=== PATIENT | female | born 1960 | race Caucasian/White ===

== ENCOUNTER 2017-01-15 11:28 | Inpatient (IN) | payer OTHER ==
[2017-01-15 11:28] VITALS: BMI 30.9
[2017-01-15] MEDS ORDERED: Sodium Chloride 0.9% 1,000 ML IV ONE ×5 (12:20→21:58)
[2017-01-15] MEDS ORDERED: Sodium Chloride 0.9% 1,000 ML ONE ×2 (12:21→16:33)
--- NOTE | 2017-01-15 12:22 | C.PDOC ---
History Of Present Illness 56-year-old female with a Hx of kidney stones, presents to the ER with a complaint of left side abdominal pain since last night with multiple episodes of vomiting. Patient has a Hx of severe complications; last bowel movement was 3 days ago; as per family, patient usually only has a bowel movement every 5 days. Denies fever or chills. Time Seen by Provider: 01/15/17 12:09 Chief Complaint (Nursing): Abdominal Pain History Per: Patient History/Exam Limitations: no limitations Onset/Duration Of Symptoms: Days Current Symptoms Are (Timing): Still Present Location Of Pain/Discomfort: Diffuse Radiation Of Pain To:: None Quality Of Discomfort: Unable To Describe Associated Symptoms: Vomiting. denies: Fever, Chills Exacerbating Factors: None Alleviating Factors: None Recent travel outside of the [place]: No Abnormal Vaginal Bleeding: No Past Medical History Reviewed: Historical Data, Nursing Documentation, Vital Signs Vital Signs: Last Vital Signs Temp 100.8 F H 01/15/17 16:08 Pulse 116 H 01/15/17 16:08 Resp 18 01/15/17 16:08 BP 107/51 L 01/15/17 16:08 Pulse Ox 98 01/15/17 16:08 - Medical History PMH: Kidney Stones, Chronic Kidney Disease - [facility] Procedures CYSTOSCOPY NEC (05/02/14) REMOV URETERAL DRAIN (05/02/14) RETROGRADE PYELOGRAM (04/08/14) URETERAL CATHETERIZATION (04/08/14) Family History: States: No Known Family Hx - Social History Hx Tobacco Use: No Hx Alcohol Use: No Hx Substance Use: No - Immunization History Hx Tetanus Toxoid Vaccination: Yes Hx Influenza Vaccination: Yes Hx Pneumococcal Vaccination: Yes Review Of Systems Constitutional: Negative for: Fever, Chills Gastrointestinal: Positive for: Vomiting, Abdominal Pain Physical Exam - Physical Exam Appears: Non-toxic Skin: Normal Color, Warm, Dry Head: Atraumatic, Normacephalic Oral Mucosa: Moist Chest: Symmetrical, No Tenderness Cardiovascular: Rhythm Regular, No Murmur Respiratory: Normal Breath Sounds, No Rales, No Rhonchi, No Wheezing Gastrointestinal/Abdominal: Soft, Tenderness (Mild diffuse), No Guarding, No Rebound Neurological/Psych: Oriented x3, Normal Speech, Normal Cognition ED Course And Treatment - Laboratory Results Result Diagrams: 01/15/17 12:01/15/17 12:28 Lab Interpretation: Abnormal O2 Sat by Pulse Oximetry: 99 (Room air) Pulse Ox Interpretation: Normal - Radiology CXR: Interpreted by Me CXR Interpretation: Yes: No Acute Disease Progress Note: CT abd/pel, blood work, and urinalysis ordered. Pepcid, toradol, zofran, and IV fluids administered. Treated with morphine 4 mg IV. Treated with IVF NSS and cipro 400 mg IV. On re-evaluation feeling better Reassessment Condition: Improved - Physician Consult Information Physician Contacted: Ziyad Enrique Outcome Of Conversation: admit Disposition Discussed With Dr.: Ziyad Enrique Doctor Will See Patient In The: Hospital - Disposition Disposition: HOSPITALIZED Disposition Time: 16:00 Condition: IMPROVED - POA Present On Arrival: None - Clinical Impression Clinical Impression: Abdominal pain, Ureteral stone with hydronephrosis, Fever - Scribe Statement The provider has reviewed the documentation as recorded by the Scribe (Bradford Mcleod) All medical record entries made by the Scribe were at my direction and personally dictated by me. I have reviewed the chart and agree that the record accurately reflects my personal performance of the history, physical exam, medical decision making, and the department course for this patient. I have also personally directed, reviewed, and agree with the discharge instructions and disposition.
[2017-01-15 12:32] LABS: BASO % 0.2 % (0.0-2.0); HEMATOCRIT 41.2 % (34.0-47.0); LYMPH # 0.8 K/uL (1.0-4.3); LYMPH % 4.7 % (20.0-40.0); MEAN CELL VOLUME 83.9 fL (81.0-99.0); MEAN CORPUSCULAR HEMOGLOBIN 27.6 pg (27.0-31.0); MEAN CORPUSCULAR HGB CONC 32.9 g/dL (33.0-37.0); MEAN PLATELET VOLUME 7.7 fL (7.2-11.7); MONO # 0.4 K/uL (0.0-0.8); MONO % 2.5 % (0.0-10.0); PLATELET COUNT 302 K/uL (130-400); RED CELL DISTRIBUTION WIDTH 14.2 % (11.5-14.5)
[2017-01-15 12:42] LABS: CHLORIDE 100 mmol/L (98-107); SODIUM 141 mmol/L (132-148)
[2017-01-15 12:43] LABS: POTASSIUM 3.9 mmol/L (3.6-5.2)
[2017-01-15 12:45] LABS: ALB/GLOB RATIO 1.1 (1.0-2.1); ALKALINE PHOSPHATASE 151 U/L (38-126); ALT/SGPT 41 U/L (9-52); AST/SGOT 23 U/L (14-36); BILIRUBIN,TOTAL 1.1 mg/dL (0.2-1.3); BLOOD UREA NITROGEN 16 mg/dL (7-17); CALCIUM 9.6 mg/dl (8.6-10.4); CARBON DIOXIDE 24 mmol/L (22-30); GFR AFRICAN-AMERICAN > 60; GLUCOSE,RANDOM 222 mg/dL (65-105); TOTAL PROTEIN 7.8 g/dL (6.3-8.3)
[2017-01-15 12:53] LABS: NEUTROPHIL 78 % (50-75); TOTAL CELLS COUNTED 100
--- NOTE | 2017-01-15 13:03 | CT ---
PROCEDURE: CT Abdomen and Pelvis without intravenous contrast HISTORY: Pain COMPARISON: 04/08/2014 TECHNIQUE: Without contrast.. Contrast Dose: 0 Radiation dose: Total exam DLP = 811.20 mGy-cm. This CT exam was performed using one or more of the following dose reduction techniques: Automated exposure control, adjustment of the mA and/or kV according to patient size, and/or use of iterative reconstruction technique. FINDINGS: LOWER THORAX: Unremarkable. LIVER: Unremarkable. No gross lesion or ductal dilatation. GALLBLADDER AND BILE DUCTS: Unremarkable. PANCREAS: Unremarkable. No gross lesion or ductal dilatation. SPLEEN: Unremarkable. ADRENALS: Unremarkable. No mass. KIDNEYS AND URETERS: Left hydronephrosis with perinephric stranding. 5 mm calculus obstructing the proximal left ureter. No emir perinephric fluid. No left renal calculus. Punctate mid right renal calcification, 1 mm, questionable significance. No renal mass. No right hydronephrosis. VASCULATURE: Unremarkable. No aortic aneurysm. BOWEL: Unremarkable. No obstruction. No gross mural thickening. APPENDIX: Unremarkable. Normal appendix. PERITONEUM: Unremarkable. No free fluid. No free air. LYMPH NODES: Unremarkable. No enlarged lymph nodes. BLADDER: Unremarkable. REPRODUCTIVE: Normal uterus. BONES: Incidental T10 vertebral hemangioma, unchanged. No acute fracture. OTHER FINDINGS: None. IMPRESSION: Obstructing 5 mm proximal left ureteral calculus with left hydronephrosis. Punctate calcification mid right kidney, questionable significance. No other significant abnormality identified.
[2017-01-15 13:46] LABS: RBC URINE 2 /hpf (0-3); URINE BILIRUBIN NEGATIVE (NEGATIVE); URINE BLOOD NEGATIVE (NEGATIVE); URINE COLOR Yellow (YELLOW); URINE GLUCOSE (UA) 2+ mg/dL (Normal); URINE KETONE 1+ mg/dL (NEGATIVE); URINE LEUKOCYTE ESTERASE NEG Leu/uL (Negative); URINE PROTEIN NEGATIVE (NEGATIVE); URINE UROBILINOGEN NORMAL mg/dL (0.2-1.0); WBC URINE 2 /hpf (0-5)
[2017-01-15] MEDS ORDERED: Morphine 4 MG/ML VIAL ONE (13:47)
[2017-01-15] MEDS ORDERED: Ciprofloxacin 400mg/200ml D5W 400 MG/200 ML BAG IV STA (14:34)
[2017-01-15 15:00] LABS: VENOUS BLOOD GAS BASE EXCESS -2.2 mmol/L (0.0-2.0); VENOUS BLOOD GAS PCO2 41 mmHg (40-60); VENOUS BLOOD PH 7.36 (7.32-7.43)
[2017-01-15] MEDS ORDERED: Ciprofloxacin 400mg/200ml D5W 400 MG/200 ML BAG IVPB ONE (16:03)
--- NOTE | 2017-01-15 16:25 | RAD ---
PROCEDURE: CHEST RADIOGRAPH, 1 VIEW HISTORY: Shortness of breath COMPARISON: 04/04/2014 FINDINGS: LUNGS: The lungs are well inflated and clear. PLEURA: No pneumothorax or pleural fluid seen. CARDIOVASCULAR: Normal. OSSEOUS STRUCTURES: No significant abnormalities. VISUALIZED UPPER ABDOMEN: Normal. OTHER FINDINGS: None. IMPRESSION: No active pulmonary disease.
[2017-01-15] MEDS ORDERED: Sodium Chloride 0.9% 1,000 ML IV SCH (16:30)
[2017-01-15 17:11] LABS: VENOUS BLOOD GAS BASE EXCESS -3.1 mmol/L (0.0-2.0); VENOUS BLOOD GAS PCO2 39 mmHg (40-60); VENOUS BLOOD PH 7.36 (7.32-7.43)
[2017-01-15] MEDS ORDERED: Lactated Ringer's 1,000 ML IV ONE (20:00)
[2017-01-15] MEDS ORDERED: Iohexol 240 (50 ml) ONE (20:13)
[2017-01-15] MEDS ORDERED: Midazolam 2 MG/2 ML VIAL ONE (20:22)
[2017-01-15] MEDS ORDERED: Propofol 10 mg/ml Inj (20 ML) ONE (20:23)
[2017-01-15] MEDS ORDERED: Gentamicin 80 mg in 0.9% NS 160 MG/200 ML BAG IVPB ONE (20:35)
--- NOTE | 2017-01-15 21:00 | CP.PCM.CON ---
Past Patient History - Past Medical History & Family History Past Medical History?: Yes - Past Social History Smoking Status: Never Smoked - CARDIAC Hx Cardiac Disorders: No - PULMONARY Hx Respiratory Disorders: No - NEUROLOGICAL Hx Neurological Disorder: No - HEENT Hx HEENT Problems: No - RENAL Hx Chronic Kidney Disease: Yes Hx Kidney Stones: Yes - ENDOCRINE/METABOLIC Hx Endocrine Disorders: No - HEMATOLOGICAL/ONCOLOGICAL Hx Blood Disorders: No - INTEGUMENTARY Hx Dermatological Problems: No - MUSCULOSKELETAL/RHEUMATOLOGICAL Hx Musculoskeletal Disorders: No - GASTROINTESTINAL Hx Gastrointestinal Disorders: No - GENITOURINARY/GYNECOLOGICAL Hx Genitourinary Disorders: No - PSYCHIATRIC Hx Substance Use: No - SURGICAL HISTORY Hx Surgeries: Yes Hx Section: Yes (2 x 25-30 years ago) Other/Comment: Stent placement [address] Pack - ANESTHESIA Hx Anesthesia: Yes Hx Anesthesia Reactions: Yes (post op nausea) Hx Malignant Hyperthermia: No Meds Allergies/Adverse Reactions: Allergies Allergy/AdvReac Type Severity Reaction Status Date / Time Penicillins Allergy RASH Verified 01/15/17 11:35 - Medications Medications: Current Medications Sodium Chloride (Sodium Chloride 0.9%) 1,000 mls @ 120 mls/hr IV .Q8H20M ONE Stop: 01/16/17 00:56 Last Admin: 01/15/17 16:38 Dose: 120 mls/hr Results - Vital Signs Recent Vital Signs: Last Vital Signs Temp 99.6 F 01/15/17 19:34 Pulse 98 H 01/15/17 19:34 Resp 20 01/15/17 19:34 BP 101/62 01/15/17 19:34 Pulse Ox 100 01/15/17 19:34 - Labs Result Diagrams: 01/15/17 12:28 01/15/17 12:28 Labs: Laboratory Results - last 24 hr 01/15/17 16:55 pO2 46 VBG pH 7.36 VBG pCO2 39 L VBG HCO3 22.0 VBG Total CO2 23.2 VBG O2 Sat (Calc) 89.0 H VBG Base Excess -3.1 L VBG Potassium 3.5 L Sodium 141.0 Chloride 108.0 H Glucose 183 H Lactate 3.3 H Venous Blood Potassium 3.5 L Assessment & Plan - Assessment and Plan (Free Text) Assessment: IMP: L URETERAL CALCULUS L HYDRONEPHROSIS UTI / PYELONEPHRITIS / SEPSIS Plan: REC/P: CULTURES ANTIBIOTIC RX CYSTO, STENT INSERTION DISCUSSED W PT AND RE FINDINGS, OPTIONS, RISKS, BENEFITS, AND ALTERNATIVES THANK YOU YS - Date & Time Date: 01/15/17 Time: 20:15
[2017-01-15] MEDS ORDERED: HYDROmorphone 0.5 mg/0.5 ml ISec IVP PRN (21:02)
--- NOTE | 2017-01-15 21:02 | PCM.SURG1 ---
Surgeon's Initial Post Op Note - Surgeon's Notes Surgeon: Romi TORRES [employer] Cell [employer] Assembler: NONE Type of Anesthesia: IV Sedation Pre-Operative Diagnosis: L HYDRONEPHROSIS. L URETERAL CALCULUS. UTI Operative Findings: SAME Post-Operative Diagnosis: SAME Operation Performed: CYSTO, L RTG PYELOGRAM,. INSERTION OF L URETERAL STENT. EUA Specimen/Specimens Removed: URINE Estimated Blood Loss: EBL {In ML}: 0 Blood Products Given: N/A Post-Op Condition: Good Date of Surgery/Procedure: 01/15/17 Time of Surgery/Procedure: 21:02
[2017-01-15] MEDS: Potassium Ch 20mEq in D5-1/2NS 1,000 ML IV SCH (22:30)
[2017-01-15] MEDS ORDERED: Ciprofloxacin 400mg/200ml D5W 400 MG/200 ML BAG IVPB SCH (23:00)
[2017-01-16] MEDS: Ciprofloxacin 400mg/200ml D5W 400 MG/200 ML BAG IVPB SCH ×2 (01:10→14:14)
--- NOTE | 2017-01-16 08:10 | RAD ---
PROCEDURE: HISTORY: Left renal colocolic -study for left ureteral stent placement COMPARISON: None TECHNIQUE: Total fluoroscopic time utilized during the procedure: 18.3 seconds. Total dose 250.9 mGy cm squared FINDINGS: Submitted images from the current procedure: 4 Please refer to the physician's notes performing the procedure. IMPRESSION: Less than 1 hour fluoroscopic time utilized during performance of the procedure
[2017-01-16] MEDS: Potassium Ch 20mEq in D5-1/2NS 1,000 ML IV SCH ×2 (08:13→17:21)
--- NOTE | 2017-01-16 08:15 | RAD ---
HISTORY: LT. RENAL COLIC COMPARISON: No prior. FINDINGS: BOWEL: Normal. No obstruction. No free air. BONES: No fracture. 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 The most inferior thoracolumbar junctional ribs are rudimentary. Mild sclerotic SI joint bilateral arthrosis Bilateral hip arthrosis OTHER FINDINGS: 4.6 mm indeterminate density projecting at the L2-3 level left-sided. Bowel contents small calcified lymph node persists left renal pelvic are renal calculus all considerations. IMPRESSION: Indeterminate 4.6 mm density left sided L2-3 level. Possible left calculus.
[2017-01-16 08:44] LABS: BASO % 0.3 % (0.0-2.0); EOS # 0.1 K/uL (0.0-0.7); EOS % 0.7 % (0.0-4.0); HEMATOCRIT 34.5 % (34.0-47.0); LYMPH # 1.8 K/uL (1.0-4.3); LYMPH % 14.1 % (20.0-40.0); MEAN CELL VOLUME 85.3 fL (81.0-99.0); MEAN CORPUSCULAR HEMOGLOBIN 27.5 pg (27.0-31.0); MEAN CORPUSCULAR HGB CONC 32.2 g/dL (33.0-37.0); MEAN PLATELET VOLUME 7.6 fL (7.2-11.7); MONO # 0.6 K/uL (0.0-0.8); MONO % 4.4 % (0.0-10.0); RED CELL DISTRIBUTION WIDTH 14.4 % (11.5-14.5); WHITE BLOOD COUNT 12.5 K/uL (4.8-10.8)
[2017-01-16 09:01] LABS: CHLORIDE 104 mmol/L (98-107); POTASSIUM 3.5 mmol/L (3.6-5.2); SODIUM 141 mmol/L (132-148)
[2017-01-16 09:03] LABS: GFR AFRICAN-AMERICAN > 60
[2017-01-16 09:04] LABS: ALKALINE PHOSPHATASE 89 U/L (38-126); ALT/SGPT 36 U/L (9-52); AST/SGOT 20 U/L (14-36); BILIRUBIN,DIRECT 0.5 mg/dL (0.0-0.4); BILIRUBIN,TOTAL 0.9 mg/dL (0.2-1.3); BLOOD UREA NITROGEN 9 mg/dL (7-17); CARBON DIOXIDE 24 mmol/L (22-30); GLUCOSE,RANDOM 119 mg/dL (65-105); TOTAL PROTEIN 5.7 g/dL (6.3-8.3)
--- NOTE | 2017-01-16 09:13 | RAD ---
HISTORY: Chest pain COMPARISON: 01/15/2017. FINDINGS: LUNGS: There is subsegmental atelectasis in the left lower lobe. There is no focal consolidation. PLEURA: No significant pleural effusion identified, no pneumothorax apparent. CARDIOVASCULAR: Normal. OSSEOUS STRUCTURES: No significant abnormalities. VISUALIZED UPPER ABDOMEN: Normal. OTHER FINDINGS: None. IMPRESSION: No active pulmonary disease.
[2017-01-16] MEDS ORDERED: Vancomycin 1 gm/NS 200 ml 1 GM/200 ML BAG IVPB STA (10:49)
--- NOTE | 2017-01-16 11:39 | CT ---
CTA chest PE protocol Indication: Chest pain, rule out PE Technique: Contiguous axial images were obtained through the chest with intravenous contrast enhancement. Sagittal and coronal reconstructions were generated and reviewed. This CT exam was performed using 1 or more of the falling dose reduction techniques: Automated exposure control, adjustment of the MAA and/or kV according to patient size, and/or use of iterative reconstruction technique. IV Contrast: 100 mL Visipaque Radiation dose (DLP): 497.97 MGy-cm. Comparison: Chest x-ray performed 01/16/17 Findings: Visualized portions of the inferior thyroid gland appear unremarkable. The mediastinal and hilar vascular structures appear within normal limits. The heart appears within normal limits of size. Coronary artery calcifications. No large central or segmental pulmonary embolus evident. Trace bilateral pleural effusions. Bibasilar atelectasis. No pneumothorax. No suspicious pulmonary nodules measuring greater than 5 mm. Limited visualized portions of the upper abdomen with hypoattenuation of the liver consistent with hepatic steatosis. Fatty atrophy of the pancreas. Osseous demineralization. Multilevel degenerative changes. Impression: No large central or segmental pulmonary embolus identified. Trace bilateral pleural effusions. Bibasilar atelectasis. Hepatic steatosis. Fatty atrophy of the pancreas.
[2017-01-16] MEDS ORDERED: Potassium Chloride 20 mEq/15 ml LIQ UD PO ONE (12:00)
--- NOTE | 2017-01-16 12:51 | PCM.URO ---
Urology Progress Note - Subjective Abdominal Pain: Yes - Objective Lab Results Last 24 Hours: Laboratory Results - last 24 hr 01/15/17 01/16/17 01/16/17 16:55 08:32 08:32 WBC 12.5 H RBC 4.04 Hgb 11.1 D Hct 34.5 MCV 85.3 MCH 27.5 MCHC 32.2 L RDW 14.4 Plt Count 186 D MPV 7.6 Neut % (Auto) 80.5 H Lymph % (Auto) 14.1 L [place] % (Auto) 4.4 Eos % (Auto) 0.7 Baso % (Auto) 0.3 Neut # 10.0 H Lymph # 1.8 [place] # 0.6 Eos # 0.1 Baso # 0.0 pO2 46 VBG pH 7.36 VBG pCO2 39 L VBG HCO3 22.0 VBG Total CO2 23.2 VBG O2 Sat (Calc) 89.0 H VBG Base Excess -3.1 L VBG Potassium 3.5 L Sodium 141.0 141 Chloride 108.0 H 104 Glucose 183 H Lactate 3.3 H Potassium 3.5 L Carbon Dioxide 24 Anion Gap 15 BUN 9 Creatinine 0.8 Est GFR ( Amer) > 60 Est GFR (Non-Af Amer) > 60 POC Glucose (mg/dL) Random Glucose 119 H Calcium 8.0 L Total Bilirubin 0.9 Direct Bilirubin 0.5 H AST 20 ALT 36 Alkaline Phosphatase 89 Total Creatine Kinase 44 CK-MB (Mass) 0.79 Troponin I, Quant 0.0570 Total Protein 5.7 L Albumin 2.8 L D Globulin 2.9 Albumin/Globulin Ratio 1.0 Venous Blood Potassium 3.5 L 01/16/17 12:02 WBC RBC Hgb Hct MCV MCH MCHC RDW Plt Count MPV Neut % (Auto) Lymph % (Auto) [place] % (Auto) Eos % (Auto) Baso % (Auto) Neut # Lymph # [place] # Eos # Baso # pO2 VBG pH VBG pCO2 VBG HCO3 VBG Total CO2 VBG O2 Sat (Calc) VBG Base Excess VBG Potassium Sodium Chloride Glucose Lactate Potassium Carbon Dioxide Anion Gap BUN Creatinine Est GFR ( Amer) Est GFR (Non-Af Amer) POC Glucose (mg/dL) 150 H Random Glucose Calcium Total Bilirubin Direct Bilirubin AST ALT Alkaline Phosphatase Total Creatine Kinase CK-MB (Mass) Troponin I, Quant Total Protein Albumin Globulin Albumin/Globulin Ratio Venous Blood Potassium Intake & Output: Intake & Output 01/15/17 01/16/17 01/16/17 18:59 06:59 18:59 Intake Total 1350 Output Total 450 Balance 1350 -450 Intake: IV 200 Intake, IV Amount 850 Left Wrist 850 Oral 300 Output: Urine 450 Urine, Voided 450 Other: Voiding Method Toilet # Voids Urine, Voided 800 # Bowel Movements 0 0 Vital Signs: Vital Signs - 24 hr 01/15/17 01/15/17 01/15/17 16:08 16:38 17:54 Temperature 100.8 F H 100.1 F H Pulse Rate 116 H 101 H Respiratory 18 18 Rate Blood Pressure 107/51 L 98/50 L O2 Sat by Pulse 98 99 98 Oximetry 01/15/17 01/15/17 01/15/17 19:34 21:00 21:15 Temperature 99.6 F 101 F H Pulse Rate 98 H 116 H 111 H Respiratory 20 17 15 Rate Blood Pressure 101/62 100/57 L 100/59 L O2 Sat by Pulse 100 100 100 Oximetry 01/15/17 01/15/17 01/15/17 21:30 21:45 22:00 Temperature 101 F H Pulse Rate 106 H 104 H 106 H Respiratory 17 18 14 Rate Blood Pressure 104/55 L 104/46 L 105/54 L O2 Sat by Pulse 100 98 98 Oximetry 01/15/17 01/15/17 01/16/17 22:25 22:36 00:21 Temperature 98.7 F 99.2 F Pulse Rate 109 H 96 H Respiratory 20 20 Rate Blood Pressure 112/71 101/64 O2 Sat by Pulse 99 2 L 99 Oximetry 01/16/17 01/16/17 01/16/17 06:00 08:34 12:10 Temperature 98.5 F 96 F L 100.9 F H Pulse Rate 98 H 95 H Respiratory 20 20 Rate Blood Pressure 117/79 124/78 O2 Sat by Pulse 99 97 Oximetry 01/16/17 12:23 Temperature 100.9 F H Pulse Rate Respiratory Rate Blood Pressure O2 Sat by Pulse Oximetry
[2017-01-16] MEDS ORDERED: Sodium Chloride 0.9% 1,000 ML IV ONE (12:52)
--- NOTE | 2017-01-16 14:04 | CP.PCM.HP ---
History of Present Illness - History of Present Illness History of Present Illness: COMPREHENSIVE HISTORY & PHYSICAL EXAM HPI LEFT RENAL [place] PAIN RADIATING TO L GROIN . IN ER A SMALL LEFT STONE . NO HYDRO PAST HIST. RENAL STONES , REMOVED AT [facility] PERSONAL HIST: Smoking. N Alcohol. Allergy N Travel_- . FAMILY HIST : ROS : Constitutional: Negative for weight change, chills, night sweats, fatigue and usage of assist device. Eyes: Negative for redness, swelling, itching, discharge, vision changes, blurry vision, double vision, glaucoma, cataracts, Ears: Negative for hearing loss, ringing, , tinnitus, vertigo Nose: Negative for rhinorrhea, stuffiness, sniffing, itching, postnasal drip, discoloration, nasal congestion and epistaxis. Throat: Negative for throat clearing, sore throat, hoarseness, difficulty swallowing and difficulty speaking. Respiratory: Negative for cough, chest tightness, sputum or phlegm, chronic cough, hemoptysis, wheezing, snoring at night, pleuritic chest pain and daytime somnolence. Cardiovascular: Negative for chest pain, palpitations, orthopnea, PND, Edema of legs, leg cramps, angina, claudication, syncope, irregular heartbeat, Neurology: Negative for irritability, muscle weakness, numbness and tingling, seizures, tremors, migraines, dizziness/vertigo, slurred speech, syncope, memory loss, mood changes, recurrent headaches Gastrointestinal: Negative for difficulty swallowing, diarrhea, constipation, black stools, rectal bleeding, nausea, flatulence, reflux, poor appetite, changes in bowel habits, abdominal pain GenitourinaryPOS for frequent urination, hematuria, , , Psychiatric: Negative for depression, anxiety/panic, suicidal tendencies, Musculoskeletal: Negative for swollen joints, back pain, , neck pain, morning stiffness of joints, . Skin: Negative for rash, ulcers, itching, dry skin and pigmented lesions. P/E: Constitutional: Appears stated age and in no apparent distress. Head: Normocephalic. Ears: External ear canals patent without inflammation. Tympanic membranes intact with normal light reflex and landmark. Eyes: Pupils are central, bilaterally equal, symmetrical and reacts to light with normal movements and no icterus or pallor. Nose: External nares are patent. Mucosa is pink Mouth-Throat: Good general appearance and condition. No post-pharyngeal/oropharyngeal erythema and tonsillar hypertrophy. Good dental hygiene. Neck-Lymphatic: Neck is supple with normal ROM, no thyromegaly, lymph nodes or masses. JVD is normal with no carotid bruit. Lungs: Clear to percussion and auscultation with bilateral normal air entry. Cardiovascular: S1 and S2 are normal with no murmurs, gallops and rub. GI Exam: No hepatomegaly. Abdomen is soft and non-tender. No Organomegaly , masses or hernias are evident and bowel sounds are normal and active. Neurology: Higher function and all cranial nerves intact, with no gross motor or sensory deficit. Superficial and deep reflexes are normal with downwards planters. No cerebellar deficit with normal gait. Musculoskeletal: No tender spots with normal curvature of the spine with no swelling or restricted ROM of the small and large joints. Extremities: Homans sign absent. Intact pulses with no pitting edema, calf tenderness or skin color changes. Skin: No rash, eruptions or abnormal skin pigmentation LAB/RADIOLOGY: ASSESMENT : 1 ACUTE LEFT RENAL COLI WITH STONE 2 RENAL STONES IN PAST S/P LITHOTRIPSY 3 4 PLAN :IV AB ID/URO EVAL Present on Admission - Present on Admission Any Indicators Present on Admission: No Past Patient History - Past Medical History & Family History Past Medical History?: Yes - Past Social History Smoking Status: Never Smoked - CARDIAC Hx Cardiac Disorders: No - PULMONARY Hx Respiratory Disorders: No - NEUROLOGICAL Hx Neurological Disorder: No - HEENT Hx HEENT Problems: No - RENAL Hx Chronic Kidney Disease: Yes Hx Kidney Stones: Yes - ENDOCRINE/METABOLIC Hx Endocrine Disorders: No - HEMATOLOGICAL/ONCOLOGICAL Hx Blood Disorders: No - INTEGUMENTARY Hx Dermatological Problems: No - MUSCULOSKELETAL/RHEUMATOLOGICAL Hx Musculoskeletal Disorders: No Hx Falls: No - GASTROINTESTINAL Hx Gastrointestinal Disorders: No - GENITOURINARY/GYNECOLOGICAL Hx Genitourinary Disorders: No - PSYCHIATRIC Hx Substance Use: No - SURGICAL HISTORY Hx Surgeries: Yes Hx Section: Yes (2 x 25-30 years ago) Other/Comment: Left Stent placement [address] Pack - ANESTHESIA Hx Anesthesia: Yes Hx Anesthesia Reactions: Yes (post op nausea) Hx Malignant Hyperthermia: No Meds Allergies/Adverse Reactions: Allergies Allergy/AdvReac Type Severity Reaction Status Date / Time Penicillins Allergy RASH Verified 01/15/17 11:35 Results - Vital Signs Recent Vital Signs: Last Vital Signs Temp 100.9 F H 01/16/17 12:23 Pulse 95 H 01/16/17 12:10 Resp 20 01/16/17 12:10 BP 124/78 01/16/17 12:10 Pulse Ox 97 01/16/17 12:10 - Labs Result Diagrams: 01/16/17 08:32 01/16/17 08:32 Labs: Laboratory Results - last 24 hr 01/15/17 01/16/17 01/16/17 16:55 08:32 08:32 WBC 12.5 H RBC 4.04 Hgb 11.1 D Hct 34.5 MCV 85.3 MCH 27.5 MCHC 32.2 L RDW 14.4 Plt Count 186 D MPV 7.6 Neut % (Auto) 80.5 H Lymph % (Auto) 14.1 L [place] % (Auto) 4.4 Eos % (Auto) 0.7 Baso % (Auto) 0.3 Neut # 10.0 H Lymph # 1.8 [place] # 0.6 Eos # 0.1 Baso # 0.0 pO2 46 VBG pH 7.36 VBG pCO2 39 L VBG HCO3 22.0 VBG Total CO2 23.2 VBG O2 Sat (Calc) 89.0 H VBG Base Excess -3.1 L VBG Potassium 3.5 L Sodium 141.0 141 Chloride 108.0 H 104 Glucose 183 H Lactate 3.3 H Potassium 3.5 L Carbon Dioxide 24 Anion Gap 15 BUN 9 Creatinine 0.8 Est GFR ( Amer) > 60 Est GFR (Non-Af Amer) > 60 POC Glucose (mg/dL) Random Glucose 119 H Lactic Acid Calcium 8.0 L Total Bilirubin 0.9 Direct Bilirubin 0.5 H AST 20 ALT 36 Alkaline Phosphatase 89 Total Creatine Kinase 44 CK-MB (Mass) 0.79 Troponin I, Quant 0.0570 Total Protein 5.7 L Albumin 2.8 L D Globulin 2.9 Albumin/Globulin Ratio 1.0 Venous Blood Potassium 3.5 L 01/16/17 01/16/17 12:02 13:19 WBC RBC Hgb Hct MCV MCH MCHC RDW Plt Count MPV Neut % (Auto) Lymph % (Auto) [place] % (Auto) Eos % (Auto) Baso % (Auto) Neut # Lymph # [place] # Eos # Baso # pO2 VBG pH VBG pCO2 VBG HCO3 VBG Total CO2 VBG O2 Sat (Calc) VBG Base Excess VBG Potassium Sodium Chloride Glucose Lactate Potassium Carbon Dioxide Anion Gap BUN Creatinine Est GFR ( Amer) Est GFR (Non-Af Amer) POC Glucose (mg/dL) 150 H Random Glucose Lactic Acid 1.3 Calcium Total Bilirubin Direct Bilirubin AST ALT Alkaline Phosphatase Total Creatine Kinase CK-MB (Mass) Troponin I, Quant Total Protein Albumin Globulin Albumin/Globulin Ratio Venous Blood Potassium
--- NOTE | 2017-01-16 14:35 | CP.PCM.PN ---
Subjective - Date & Time of Evaluation Date of Evaluation: 01/16/17 Time of Evaluation: 12:15 - Subjective Subjective: Code Sepsis was called on this patient at 12:15 for temperature of 100.9 F. Upon arrival the patient was AAOx3 with the following vitals: HR 95, BP 124/78 , RR 20 and SpO2 97% on room air. Patient complained of feeling cold. Patient' s chart was reviewed with attending Dr Zaheer Velarde. Chest X-ray from this morning was reviewed. The patient's blood work and cultures were reviewed. It was noted that the patient's urine culture and blood cultures were positive since admission. ID Dr Brown is already on board and patient has been on IV antibiotics. On physical exam patient appears diaphoretic, no acute distress, sinus tachycardia, fine expiratory crackles heard in left lung base. Patient was given a fluid bolus of NS @300cc/hr, tylenol for her fever, and lactic acid was ordered. Results of lactic acid were 1.3 (normal). Evangelina Monroe PGY3, House Doctor Objective - Vital Signs/Intake and Output Vital Signs (last 24 hours): Temp Pulse Resp BP Pulse Ox 100.9 F H 95 H 20 124/78 97 01/16/17 12:23 01/16/17 12:10 01/16/17 12:10 01/16/17 12:10 01/16/17 12:10 Intake and Output: 01/16/17 01/16/17 06:59 18:59 Intake Total 1350 Output Total 450 Balance 1350 -450 - Medications Medications: Current Medications Acetaminophen (Tylenol 325mg Tab) 650 mg PO Q6 PRN PRN Reason: Headache Last Admin: 01/16/17 12:23 Dose: 650 mg Heparin Sodium (Porcine) (Heparin) 5,000 units SC Q12 [facility] Last Admin: 01/16/17 11:41 Dose: 5,000 units Potassium Chloride/Dextrose/Sod Cl (Potassium Chl 20 Meq In D5-1/2ns) 1,000 mls @ 100 mls/hr IV .Q10H [facility] Last Admin: 01/16/17 08:13 Dose: Not Given Ciprofloxacin (Cipro 400mg/200ml Dsw) 400 mg in 200 mls @ 133 mls/hr IVPB Q12H [facility] Last Admin: 01/16/17 14:14 Dose: 133 mls/hr Gentamicin Sulfate 100 mg/ (Sodium Chloride) 102.5 mls @ 100 mls/hr IVPB Q8H [facility] Stop: 01/17/17 04:32 Last Admin: 01/16/17 12:25 Dose: 100 mls/hr Sodium Chloride (Sodium Chloride 0.9%) 1,000 mls @ 300 mls/hr IV .Q3H20M ONE Stop: 01/16/17 16:11 Last Admin: 01/16/17 13:43 Dose: 300 mls/hr Ketorolac Tromethamine (Toradol) 30 mg IVP Q6 PRN PRN Reason: Pain, moderate (4-7) - Labs Labs: 01/16/17 08:32 01/16/17 08:32
--- NOTE | 2017-01-16 20:34 | CP.PCM.CON ---
History of Present Illness - History of Present Illness History of Present Illness: INFECTIOUS DISEASE CONSULTATION; HPI 56 years old female with history of kidney stones who presented to [facility] ER complains of left flank pain since one day prior to admission with multiple episodes of vomiting. In the ER patient was also found to have fevers with elevated WBC count of 18, 000 with 17% bandemia.PATIENT ALSO HAS HISTORY OF CHRONIC CONSTIPATION WITH HISTORY OF BOWEL MOVEMENT EVERY [address] of the abdomen and pelvis showed left hydronephrosis with obstructive left ureteral calculus. Patient was seen by urologist Dr. Pack and underwent cystoscopy with left ureteral stent insertion on 01/15/17. Infectious disease consultation requested by PMD for obstructive uropathy and pyelonephritis. Patient was given a dose of gentamicin 160 mg during the procedure by . Patient has allergy to penicillins and states he develops a rash. Patient also reported to have positive blood cultures for gram-negative rods and urine cultures showing GNR. ALLERGY; PENICILLIN. PMH: Kidney Stones, Chronic Kidney Disease - [facility] Procedures CYSTOSCOPY NEC (05/02/14) REMOV URETERAL DRAIN (05/02/14) RETROGRADE PYELOGRAM (04/08/14) URETERAL CATHETERIZATION (04/08/14) Family History: States: No Known Family Hx - Social History Hx Tobacco Use: No Hx Alcohol Use: No Hx Substance Use: No - Immunization History Hx Tetanus Toxoid Vaccination: Yes Hx Influenza Vaccination: Yes Hx Pneumococcal Vaccination: Yes Review of Systems - Constitutional Constitutional: Chills, Fever - EENT Eyes: absent: Change in Vision Nose/Mouth/Throat: Dry Mouth. absent: Mouth Lesions - Cardiovascular Cardiovascular: Chest Pain. absent: Dyspnea - Respiratory Respiratory: absent: Hemoptysis - Gastrointestinal Gastrointestinal: Abdominal Pain (LEFT FLANK AND LEFT cva TENDERNESS.), Constipation, Nausea, Vomiting - Genitourinary Genitourinary: Freq UTI, Hx Renal/Bladder Calculi, Hx /Renal Surgery - Integumentary Integumentary: absent: Rash - Neurological Neurological: absent: Dizziness - Hematologic/Lymphatic Hematologic: As Per HPI. absent: Easy Bleeding, Lymphadenopathy Past Patient History - Past Medical History & Family History Past Medical History?: Yes - Past Social History Smoking Status: Never Smoked - CARDIAC Hx Cardiac Disorders: No - PULMONARY Hx Respiratory Disorders: No - NEUROLOGICAL Hx Neurological Disorder: No - HEENT Hx HEENT Problems: No - RENAL Hx Chronic Kidney Disease: Yes Hx Kidney Stones: Yes - ENDOCRINE/METABOLIC Hx Endocrine Disorders: No - HEMATOLOGICAL/ONCOLOGICAL Hx Blood Disorders: No - INTEGUMENTARY Hx Dermatological Problems: No - MUSCULOSKELETAL/RHEUMATOLOGICAL Hx Musculoskeletal Disorders: No Hx Falls: No - GASTROINTESTINAL Hx Gastrointestinal Disorders: No - GENITOURINARY/GYNECOLOGICAL Hx Genitourinary Disorders: No - PSYCHIATRIC Hx Substance Use: No - SURGICAL HISTORY Hx Surgeries: Yes Hx Section: Yes (2 x 25-30 years ago) Other/Comment: Left Stent placement [address] Pack - ANESTHESIA Hx Anesthesia: Yes Hx Anesthesia Reactions: Yes (post op nausea) Hx Malignant Hyperthermia: No Meds Allergies/Adverse Reactions: Allergies Allergy/AdvReac Type Severity Reaction Status Date / Time Penicillins Allergy RASH Verified 01/15/17 11:35 - Medications Medications: Current Medications Acetaminophen (Tylenol 325mg Tab) 650 mg PO Q6 PRN PRN Reason: Headache Last Admin: 01/16/17 18:22 Dose: 650 mg Heparin Sodium (Porcine) (Heparin) 5,000 units SC Q12 [facility] Last Admin: 01/16/17 11:41 Dose: 5,000 units Potassium Chloride/Dextrose/Sod Cl (Potassium Chl 20 Meq In D5-1/2ns) 1,000 mls @ 100 mls/hr IV .Q10H [facility] Last Admin: 01/16/17 08:13 Dose: Not Given Ciprofloxacin (Cipro 400mg/200ml Dsw) 400 mg in 200 mls @ 133 mls/hr IVPB Q12H [facility] Last Admin: 01/16/17 14:14 Dose: 133 mls/hr Gentamicin Sulfate 100 mg/ (Sodium Chloride) 102.5 mls @ 100 mls/hr IVPB Q8H [facility] Stop: 01/17/17 04:32 Last Admin: 01/16/17 12:25 Dose: 100 mls/hr Ketorolac Tromethamine (Toradol) 30 mg IVP Q6 PRN PRN Reason: Pain, moderate (4-7) Physical Exam - Constitutional Appears: No Acute Distress - Head Exam Head Exam: NORMAL INSPECTION - Eye Exam Eye Exam: EOMI, PERRL - ENT Exam ENT Exam: Normal Oropharynx - Neck Exam Neck exam: Positive for: Normal Inspection - Respiratory Exam Respiratory Exam: Clear to Auscultation Bilateral, NORMAL BREATHING PATTERN - Cardiovascular Exam Cardiovascular Exam: Tachycardia, REGULAR RHYTHM, +S1, +S2 - GI/Abdominal Exam GI & Abdominal Exam: Hypoactive Bowel Sounds, Soft, Tenderness (LEFT FLANK AND cva TENDERNESS) - Extremities Exam Extremities exam: Positive for: pedal pulses present. Negative for: calf tenderness, pedal edema - Back Exam Back exam: CVA tenderness (L) - Neurological Exam Neurological exam: Alert, CN II-XII Intact, Oriented x3, Reflexes Normal - Psychiatric Exam Psychiatric exam: Normal Mood - Skin Skin Exam: Normal Color, Warm Results - Vital Signs Recent Vital Signs: Last Vital Signs Temp 98.8 F 01/16/17 15:00 Pulse 88 01/16/17 15:00 Resp 20 01/16/17 15:00 BP 107/61 01/16/17 15:00 Pulse Ox 95 01/16/17 15:00 - Labs Result Diagrams: 01/16/17 08:32 01/16/17 08:32 Labs: Laboratory Results - last 24 hr 01/16/17 01/16/17 01/16/17 08:32 08:32 12:02 WBC 12.5 H RBC 4.04 Hgb 11.1 D Hct 34.5 MCV 85.3 MCH 27.5 MCHC 32.2 L RDW 14.4 Plt Count 186 D MPV 7.6 Neut % (Auto) 80.5 H Lymph % (Auto) 14.1 L [place] % (Auto) 4.4 Eos % (Auto) 0.7 Baso % (Auto) 0.3 Neut # 10.0 H Lymph # 1.8 [place] # 0.6 Eos # 0.1 Baso # 0.0 Sodium 141 Potassium 3.5 L Chloride 104 Carbon Dioxide 24 Anion Gap 15 BUN 9 Creatinine 0.8 Est GFR ( Amer) > 60 Est GFR (Non-Af Amer) > 60 POC Glucose (mg/dL) 150 H Random Glucose 119 H Lactic Acid Calcium 8.0 L Total Bilirubin 0.9 Direct Bilirubin 0.5 H AST 20 ALT 36 Alkaline Phosphatase 89 Total Creatine Kinase 44 CK-MB (Mass) 0.79 Troponin I, Quant 0.0570 Total Protein 5.7 L Albumin 2.8 L D Globulin 2.9 Albumin/Globulin Ratio 1.0 Procalcitonin 01/16/17 01/16/17 13:19 13:19 WBC RBC Hgb Hct MCV MCH MCHC RDW Plt Count MPV Neut % (Auto) Lymph % (Auto) [place] % (Auto) Eos % (Auto) Baso % (Auto) Neut # Lymph # [place] # Eos # Baso # Sodium Potassium Chloride Carbon Dioxide Anion Gap BUN Creatinine Est GFR ( Amer) Est GFR (Non-Af Amer) POC Glucose (mg/dL) Random Glucose Lactic Acid 1.3 Calcium Total Bilirubin Direct Bilirubin AST ALT Alkaline Phosphatase Total Creatine Kinase CK-MB (Mass) Troponin I, Quant Total Protein Albumin Globulin Albumin/Globulin Ratio Procalcitonin 1.97 H - Imaging and Cardiology CT scan - abdomenand pelvis Status: Report reviewed by me Assessment & Plan (1) Sepsis, Gram negative Assessment and Plan: blood cultures 01/15/17 +ve gram-negative rods.-Identification pending. Continue IV Cipro 400 mg every 12 hourly. 01/15. Add IV gentamicin 100 mg IV piggyback every 8 hourly 3 doses while awaiting cultures. Follow-up renal functions closely. Follow-up blood cultures to adjust antibiotics. Status: Acute (2) Pyelonephritis Status: Acute (3) Ureteral stone with hydronephrosis Assessment and Plan: patient s/p cystoscopy and left ureteral stent placement. Follow-up urine cultures. on the case. Status: Acute (4) Costochondral chest pain Status: Acute
[2017-01-17] MEDS: Ciprofloxacin 400mg/200ml D5W 400 MG/200 ML BAG IVPB SCH ×2 (01:25→13:35)
[2017-01-17] MEDS: Potassium Ch 20mEq in D5-1/2NS 1,000 ML IV SCH ×3 (03:45→22:14)
[2017-01-17 08:25] LABS: BASO % 0.3 % (0.0-2.0); EOS % 0.4 % (0.0-4.0); HEMATOCRIT 32.9 % (34.0-47.0); LYMPH # 1.1 K/uL (1.0-4.3); LYMPH % 15.5 % (20.0-40.0); MEAN CELL VOLUME 84.2 fL (81.0-99.0); MEAN CORPUSCULAR HGB CONC 33.3 g/dL (33.0-37.0); MEAN PLATELET VOLUME 7.7 fL (7.2-11.7); MONO # 0.4 K/uL (0.0-0.8); MONO % 5.6 % (0.0-10.0); RED CELL DISTRIBUTION WIDTH 14.7 % (11.5-14.5); WHITE BLOOD COUNT 7.2 K/uL (4.8-10.8)
[2017-01-17 08:39] LABS: CHLORIDE 104 mmol/L (98-107); POTASSIUM 3.8 mmol/L (3.6-5.2); SODIUM 138 mmol/L (132-148)
[2017-01-17 08:41] LABS: ALB/GLOB RATIO 0.9 (1.0-2.1); AST/SGOT 24 U/L (14-36); BILIRUBIN,TOTAL 0.7 mg/dL (0.2-1.3); CARBON DIOXIDE 23 mmol/L (22-30); GFR AFRICAN-AMERICAN > 60; TOTAL PROTEIN 5.8 g/dL (6.3-8.3)
[2017-01-17 08:42] LABS: ALKALINE PHOSPHATASE 98 U/L (38-126); ALT/SGPT 37 U/L (9-52); BLOOD UREA NITROGEN 6 mg/dL (7-17); CALCIUM 8.1 mg/dl (8.6-10.4); GLUCOSE,RANDOM 164 mg/dL (65-105)
--- NOTE | 2017-01-17 13:25 | CP.PCM.PN ---
Subjective - Date & Time of Evaluation Date of Evaluation: 01/17/17 Time of Evaluation: 13:24 - Subjective Subjective: AFEBRILE HEADACHE GRAM NEGATIVE SEPSIS , E. COLI IV AB AND FLUIDS Objective - Vital Signs/Intake and Output Vital Signs (last 24 hours): Temp Pulse Resp BP Pulse Ox 99.3 F 85 20 114/76 97 01/17/17 05:30 01/17/17 05:30 01/17/17 05:30 01/17/17 05:30 01/17/17 05:30 Intake and Output: 01/17/17 01/17/17 11:59 23:59 Intake Total 1050 1150 Output Total 500 800 Balance 550 350 - Medications Medications: Current Medications Acetaminophen (Tylenol 325mg Tab) 650 mg PO Q6 PRN PRN Reason: Headache Last Admin: 01/17/17 11:41 Dose: 650 mg Heparin Sodium (Porcine) (Heparin) 5,000 units SC Q12 [facility] Last Admin: 01/17/17 10:37 Dose: 5,000 units Potassium Chloride/Dextrose/Sod Cl (Potassium Chl 20 Meq In D5-1/2ns) 1,000 mls @ 100 mls/hr IV .Q10H [facility] Last Admin: 01/17/17 03:45 Dose: Not Given Ciprofloxacin (Cipro 400mg/200ml Dsw) 400 mg in 200 mls @ 133 mls/hr IVPB Q12H [facility] Last Admin: 01/17/17 01:25 Dose: 133 mls/hr Ketorolac Tromethamine (Toradol) 30 mg IVP Q6 PRN PRN Reason: Pain, moderate (4-7) Last Admin: 01/16/17 21:22 Dose: 30 mg - Labs Labs: 01/17/17 08:10 01/17/17 08:10
--- NOTE | 2017-01-17 13:35 | CP.PCM.PN ---
Subjective - Date & Time of Evaluation Date of Evaluation: 01/17/17 Time of Evaluation: 13:35 - Subjective Subjective: afebrile, c/o left flank pain. HEADACHE, BLOOD cULTURE +VE E. COLI. URINE CULTURE +VE E.COLI Objective - Vital Signs/Intake and Output Vital Signs (last 24 hours): Temp Pulse Resp BP Pulse Ox 99.3 F 85 20 114/76 97 01/17/17 05:30 01/17/17 05:30 01/17/17 05:30 01/17/17 05:30 01/17/17 05:30 Intake and Output: 01/17/17 01/17/17 06:59 18:59 Intake Total 2150 1150 Output Total 1500 800 Balance 650 350 - Medications Medications: Current Medications Acetaminophen (Tylenol 325mg Tab) 650 mg PO Q6 PRN PRN Reason: Headache Last Admin: 01/17/17 11:41 Dose: 650 mg Heparin Sodium (Porcine) (Heparin) 5,000 units SC Q12 [facility] Last Admin: 01/17/17 10:37 Dose: 5,000 units Potassium Chloride/Dextrose/Sod Cl (Potassium Chl 20 Meq In D5-1/2ns) 1,000 mls @ 100 mls/hr IV .Q10H [facility] Last Admin: 01/17/17 03:45 Dose: Not Given Ciprofloxacin (Cipro 400mg/200ml Dsw) 400 mg in 200 mls @ 133 mls/hr IVPB Q12H [facility] Last Admin: 01/17/17 01:25 Dose: 133 mls/hr Ketorolac Tromethamine (Toradol) 30 mg IVP Q6 PRN PRN Reason: Pain, moderate (4-7) Last Admin: 01/16/17 21:22 Dose: 30 mg - Labs Labs: 01/17/17 08:10 01/17/17 08:10 - Constitutional Appears: No Acute Distress - Head Exam Head Exam: NORMAL INSPECTION - Eye Exam Eye Exam: EOMI, PERRL - ENT Exam ENT Exam: Normal Oropharynx - Neck Exam Neck Exam: Normal Inspection - Respiratory Exam Respiratory Exam: Clear to Ausculation Bilateral, NORMAL BREATHING PATTERN - Cardiovascular Exam Cardiovascular Exam: REGULAR RHYTHM, +S1, +S2 - GI/Abdominal Exam GI & Abdominal Exam: Soft, Tenderness (LEFT FLANK.), Normal Bowel Sounds. absent: Guarding - Extremities Exam Extremities Exam: Normal Capillary Refill. absent: Calf Tenderness, Pedal Edema - Back Exam Back Exam: CVA tenderness (L) - Neurological Exam Neurological Exam: Awake, CN II-XII Intact, Oriented x3, Reflexes Normal - Psychiatric Exam Psychiatric exam: Normal Mood - Skin Skin Exam: Normal Color, Warm Assessment and Plan (1) Sepsis, Gram negative Assessment & Plan: BLOOD CULTURE +VE E.COLI. SOURCE OF SEPSIS MOST LIKELY / LEFT PYELONEPHRITIS. Continue IV Cipro 400 mg every 12 hourly. 01/15. Add IV gentamicin 100 mg IV piggyback every 8 hourly 3 doses while awaiting cultures.COMPLETED Follow-up renal functions closely. Status: Acute (2) Pyelonephritis Status: Acute (3) Ureteral stone with hydronephrosis Assessment & Plan: patient s/p cystoscopy and left ureteral stent placement.01/15/17 Follow-up urine cultures. on the case. CONTINUE iv ANTIBIOTICS. Status: Acute (4) Costochondral chest pain Status: Acute
--- NOTE | 2017-01-17 15:14 | PCM.URO ---
Urology Progress Note - General General: No Complaints, Tolerating Diet - Subjective Abdominal Pain: No Flank Pain: No Nausea: No Vomiting: No Voiding Well: Yes Hematuria: No Good Stream: No Dsypnea: No Chest Pain: No Fever & Chills: No - Objective Lab Studies: Reviewed Lab Results Last 24 Hours: Laboratory Results - last 24 hr 01/17/17 01/17/17 01/17/17 08:10 08:10 08:10 WBC 7.2 RBC 3.91 Hgb 10.9 L Hct 32.9 L MCV 84.2 MCH 28.0 MCHC 33.3 RDW 14.7 H Plt Count 186 MPV 7.7 Neut % (Auto) 78.2 H Lymph % (Auto) 15.5 L [place] % (Auto) 5.6 Eos % (Auto) 0.4 Baso % (Auto) 0.3 Neut # 5.6 Lymph # 1.1 [place] # 0.4 Eos # 0.0 Baso # 0.0 Sodium 138 Potassium 3.8 Chloride 104 Carbon Dioxide 23 Anion Gap 15 BUN 6 L Creatinine 0.7 Est GFR ( Amer) > 60 Est GFR (Non-Af Amer) > 60 Random Glucose 164 H Lactic Acid Calcium 8.1 L Total Bilirubin 0.7 AST 24 ALT 37 Alkaline Phosphatase 98 Total Protein 5.8 L Albumin 2.8 L Globulin 3.1 Albumin/Globulin Ratio 0.9 L Procalcitonin 1.13 H 01/17/17 08:10 WBC RBC Hgb Hct MCV MCH MCHC RDW Plt Count MPV Neut % (Auto) Lymph % (Auto) [place] % (Auto) Eos % (Auto) Baso % (Auto) Neut # Lymph # [place] # Eos # Baso # Sodium Potassium Chloride Carbon Dioxide Anion Gap BUN Creatinine Est GFR ( Amer) Est GFR (Non-Af Amer) Random Glucose Lactic Acid 1.0 Calcium Total Bilirubin AST ALT Alkaline Phosphatase Total Protein Albumin Globulin Albumin/Globulin Ratio Procalcitonin Intake & Output: Intake & Output 01/16/17 01/17/17 01/17/17 18:59 06:59 18:59 Intake Total 1500 2150 1150 Output Total 1450 1500 800 Balance 50 650 350 Intake: Intake, IV Amount 1000 1650 800 Left Forearm 850 800 Left Wrist 1000 800 Oral 500 500 350 Output: Urine 1450 1500 800 Urine, Voided 1450 1500 800 Other: # Voids Urine, Voided 2 2 # Bowel Movements 0 0 0 Vital Signs: Vital Signs - 24 hr 01/17/17 01/17/17 00:23 05:30 Temperature 98.5 F 99.3 F Pulse Rate 87 85 Respiratory 20 20 Rate Blood Pressure 100/63 114/76 O2 Sat by Pulse 97 97 Oximetry - Physical Exam Abdominal Exam: Soft, Non-Tender, Non-Distended Back: No CVA Tenderness - Plan Additional Information: Imp: progessing well. uti, sepsis, urolithiasis. rec : stent in place. antibiotic rx - Date & Time of Note Date: 01/17/17 Time: 15:14
[2017-01-18] MEDS: Ciprofloxacin 400mg/200ml D5W 400 MG/200 ML BAG IVPB SCH ×2 (01:05→14:09)
--- NOTE | 2017-01-18 06:49 | CARD ---
APPROVED REPORT EKG Measurement Heart [id number] <Conclusion> Sinus tachycardia Possible Inferior infarct, age undetermined Cannot rule out Anterior infarct, age undetermined Abnormal ECG
[2017-01-18 09:12] LABS: BASO % 0.4 % (0.0-2.0); EOS # 0.1 K/uL (0.0-0.7); EOS % 1.9 % (0.0-4.0); HEMATOCRIT 34.6 % (34.0-47.0); LYMPH # 1.3 K/uL (1.0-4.3); LYMPH % 16.9 % (20.0-40.0); MEAN CELL VOLUME 83.8 fL (81.0-99.0); MEAN CORPUSCULAR HEMOGLOBIN 27.7 pg (27.0-31.0); MEAN CORPUSCULAR HGB CONC 33.1 g/dL (33.0-37.0); MEAN PLATELET VOLUME 7.9 fL (7.2-11.7); MONO # 0.6 K/uL (0.0-0.8); MONO % 8.1 % (0.0-10.0); RED CELL DISTRIBUTION WIDTH 14.4 % (11.5-14.5); WHITE BLOOD COUNT 7.6 K/uL (4.8-10.8)
[2017-01-18 09:30] LABS: CHLORIDE 103 mmol/L (98-107); POTASSIUM 3.9 mmol/L (3.6-5.2); SODIUM 137 mmol/L (132-148)
[2017-01-18 09:32] LABS: GFR AFRICAN-AMERICAN > 60
[2017-01-18 09:33] LABS: BLOOD UREA NITROGEN 5 mg/dL (7-17); CALCIUM 8.4 mg/dl (8.6-10.4); CARBON DIOXIDE 22 mmol/L (22-30); GLUCOSE,RANDOM 146 mg/dL (65-105)
[2017-01-18] MEDS: Potassium Ch 20mEq in D5-1/2NS 1,000 ML IV SCH ×3 (10:37→21:31)
--- NOTE | 2017-01-18 13:38 | CP.PCM.PN ---
Subjective - Date & Time of Evaluation Date of Evaluation: 01/18/17 Time of Evaluation: 13:38 - Subjective Subjective: AFEBRILE BLD CULTURE POS FOR E. COLI IV AB PER ID Objective - Vital Signs/Intake and Output Vital Signs (last 24 hours): Temp Pulse Resp BP Pulse Ox 99.0 F 74 20 131/84 98 01/18/17 08:47 01/18/17 08:47 01/18/17 08:47 01/18/17 08:47 01/18/17 08:47 Intake and Output: 01/18/17 01/18/17 11:59 23:59 Intake Total 1150 1300 Output Total 700 800 Balance 450 500 - Medications Medications: Current Medications Acetaminophen (Tylenol 325mg Tab) 650 mg PO Q6 PRN PRN Reason: Headache Last Admin: 01/18/17 06:30 Dose: 650 mg Heparin Sodium (Porcine) (Heparin) 5,000 units SC Q12 [facility] Last Admin: 01/18/17 10:35 Dose: 5,000 units Potassium Chloride/Dextrose/Sod Cl (Potassium Chl 20 Meq In D5-1/2ns) 1,000 mls @ 100 mls/hr IV .Q10H [facility] Last Admin: 01/18/17 10:37 Dose: 100 mls/hr Ciprofloxacin (Cipro 400mg/200ml Dsw) 400 mg in 200 mls @ 133 mls/hr IVPB Q12H [facility] Last Admin: 01/18/17 01:05 Dose: 133 mls/hr - Labs Labs: 01/18/17 08:58 01/18/17 08:58
--- NOTE | 2017-01-18 18:15 | CP.PCM.PN ---
Subjective - Date & Time of Evaluation Date of Evaluation: 01/18/17 Time of Evaluation: 18:15 - Subjective Subjective: AFEBRILE, COMPLAINS OF LEFT FLANK PAIN, FAMILY AT BEDSIDE Objective - Vital Signs/Intake and Output Vital Signs (last 24 hours): Temp Pulse Resp BP Pulse Ox 98.3 F 74 20 131/84 98 01/18/17 18:00 01/18/17 08:47 01/18/17 08:47 01/18/17 08:47 01/18/17 08:47 Intake and Output: 01/18/17 01/18/17 06:59 18:59 Intake Total 1450 1300 Output Total 700 800 Balance 750 500 - Medications Medications: Current Medications Acetaminophen (Tylenol 325mg Tab) 650 mg PO Q6 PRN PRN Reason: Headache Last Admin: 01/18/17 18:00 Dose: 650 mg Heparin Sodium (Porcine) (Heparin) 5,000 units SC Q12 [facility] Last Admin: 01/18/17 10:35 Dose: 5,000 units Potassium Chloride/Dextrose/Sod Cl (Potassium Chl 20 Meq In D5-1/2ns) 1,000 mls @ 100 mls/hr IV .Q10H [facility] Last Admin: 01/18/17 10:37 Dose: 100 mls/hr Ciprofloxacin (Cipro 400mg/200ml Dsw) 400 mg in 200 mls @ 133 mls/hr IVPB Q12H [facility] Last Admin: 01/18/17 01:05 Dose: 133 mls/hr - Labs Labs: 01/18/17 08:58 01/18/17 08:58 - Constitutional Appears: No Acute Distress - Head Exam Head Exam: NORMAL INSPECTION - Eye Exam Eye Exam: EOMI, PERRL. absent: Scleral icterus - ENT Exam ENT Exam: Normal Oropharynx - Neck Exam Neck Exam: Normal Inspection - Respiratory Exam Respiratory Exam: Clear to Ausculation Bilateral, NORMAL BREATHING PATTERN - Cardiovascular Exam Cardiovascular Exam: REGULAR RHYTHM, +S1, +S2 - GI/Abdominal Exam GI & Abdominal Exam: Soft, Tenderness (MILD TENDERNESS LEFT FLANK AND LEFT GROIN.), Normal Bowel Sounds - Back Exam Back Exam: CVA tenderness (L) - Neurological Exam Neurological Exam: Alert, Awake, CN II-XII Intact, Oriented x3 - Psychiatric Exam Psychiatric exam: Normal Mood - Skin Skin Exam: Normal Color, Warm Assessment and Plan (1) Sepsis, Gram negative Assessment & Plan: BLOOD CULTURE +VE E.COLI. SOURCE OF SEPSIS MOST LIKELY / LEFT PYELONEPHRITIS. Continue IV Cipro 400 mg every 12 hourly. 01/15. Add IV gentamicin 100 mg IV piggyback every 8 hourly 3 doses while awaiting cultures.COMPLETED Follow-up renal functions closely. Status: Acute (2) Pyelonephritis Status: Acute (3) Ureteral stone with hydronephrosis Assessment & Plan: patient s/p cystoscopy and left ureteral stent placement.01/15/17 Follow-up urine cultures. on the case. CONTINUE iv ANTIBIOTICS. Status: Acute (4) Costochondral chest pain Status: Acute
[2017-01-19] MEDS: Ciprofloxacin 400mg/200ml D5W 400 MG/200 ML BAG IVPB SCH ×2 (01:20→13:26)
--- NOTE | 2017-01-19 14:25 | CP.PCM.PN ---
Subjective - Date & Time of Evaluation Date of Evaluation: 01/19/17 Time of Evaluation: 14:24 - Subjective Subjective: GRAM NEG SEPSIS SEC TO HYDRO/STONE ON IV AB MONITOR RENAL FUNCTION Objective - Vital Signs/Intake and Output Vital Signs (last 24 hours): Temp Pulse Resp BP Pulse Ox 98.9 F 81 20 131/85 99 01/19/17 08:49 01/19/17 08:49 01/19/17 08:49 01/19/17 08:49 01/19/17 08:49 Intake and Output: 01/19/17 01/19/17 11:59 23:59 Intake Total 1150 Output Total 600 Balance 550 - Medications Medications: Current Medications Acetaminophen (Tylenol 325mg Tab) 650 mg PO Q6 PRN PRN Reason: Headache Last Admin: 01/19/17 00:00 Dose: 650 mg Ciprofloxacin (Cipro 400mg/200ml Dsw) 400 mg in 200 mls @ 133 mls/hr IVPB Q12H [facility] Last Admin: 01/19/17 13:26 Dose: 133 mls/hr - Labs Labs: 01/18/17 08:58 01/18/17 08:58
[2017-01-20 00:01] VITALS: RESP 20
[2017-01-20] MEDS: Ciprofloxacin 400mg/200ml D5W 400 MG/200 ML BAG IVPB SCH ×2 (01:36→13:42)
[2017-01-20 07:59] LABS: BASO # 0.1 K/uL (0.0-0.2); EOS # 0.2 K/uL (0.0-0.7); EOS % 2.6 % (0.0-4.0); HEMATOCRIT 37.9 % (34.0-47.0); LYMPH # 3.1 K/uL (1.0-4.3); LYMPH % 38.9 % (20.0-40.0); MEAN CELL VOLUME 83.5 fL (81.0-99.0); MEAN CORPUSCULAR HEMOGLOBIN 27.6 pg (27.0-31.0); MEAN CORPUSCULAR HGB CONC 33.1 g/dL (33.0-37.0); MEAN PLATELET VOLUME 7.1 fL (7.2-11.7); MONO # 0.9 K/uL (0.0-0.8); MONO % 10.8 % (0.0-10.0); NRBC % 0.1 % (0.0-2.0); RED CELL DISTRIBUTION WIDTH 14.3 % (11.5-14.5); WHITE BLOOD COUNT 7.9 K/uL (4.8-10.8)
[2017-01-20 08:26] LABS: CHLORIDE 100 mmol/L (98-107); POTASSIUM 3.8 mmol/L (3.6-5.2); SODIUM 139 mmol/L (132-148)
[2017-01-20 08:28] LABS: AST/SGOT 31 U/L (14-36); BILIRUBIN,TOTAL 0.8 mg/dL (0.2-1.3); CARBON DIOXIDE 24 mmol/L (22-30); GFR AFRICAN-AMERICAN > 60
[2017-01-20 08:29] LABS: ALKALINE PHOSPHATASE 133 U/L (38-126); ALT/SGPT 48 U/L (9-52); BLOOD UREA NITROGEN 8 mg/dL (7-17); CALCIUM 8.7 mg/dl (8.6-10.4); GLUCOSE,RANDOM 124 mg/dL (65-105); TOTAL PROTEIN 6.8 g/dL (6.3-8.3)
--- NOTE | 2017-01-20 12:52 | PCM.URO ---
Urology Progress Note - General General: No Complaints, Tolerating Diet - Subjective Abdominal Pain: No Flank Pain: No Nausea: No Vomiting: No Voiding Well: Yes Hematuria: No Good Stream: No Stone Passed: No Chest Pain: No Fever & Chills: No Other: feeling well - Objective Lab Results Last 24 Hours: Laboratory Results - last 24 hr 01/20/17 01/20/17 07:45 07:45 WBC 7.9 RBC 4.55 Hgb 12.6 Hct 37.9 MCV 83.5 MCH 27.6 MCHC 33.1 RDW 14.3 Plt Count 299 MPV 7.1 L Neut % (Auto) 46.7 L Lymph % (Auto) 38.9 [place] % (Auto) 10.8 H Eos % (Auto) 2.6 Baso % (Auto) 1.0 Neut # 3.7 Lymph # 3.1 [place] # 0.9 H Eos # 0.2 Baso # 0.1 Sodium 139 Potassium 3.8 Chloride 100 Carbon Dioxide 24 Anion Gap 19 BUN 8 Creatinine 0.8 Est GFR ( Amer) > 60 Est GFR (Non-Af Amer) > 60 Random Glucose 124 H Calcium 8.7 Total Bilirubin 0.8 AST 31 ALT 48 Alkaline Phosphatase 133 H D Total Protein 6.8 Albumin 3.3 L Globulin 3.5 Albumin/Globulin Ratio 1.0 Vital Signs: Vital Signs - 24 hr 01/19/17 01/20/17 01/20/17 15:00 00:00 07:15 Temperature 98 F 98.3 F 98.2 F Pulse Rate 87 88 110 H Respiratory 18 20 20 Rate Blood Pressure 112/75 99/63 L 96/64 L O2 Sat by Pulse 97 96 97 Oximetry 01/20/17 07:36 Temperature Pulse Rate Respiratory Rate Blood Pressure 102/65 O2 Sat by Pulse Oximetry - Physical Exam Abdominal Exam: Soft, Non-Tender, Non-Distended Back: No CVA Tenderness Urine Color: Clear, Yellow Extremities: Normal: Bilateral - Plan Intake & Output: Yes Additional Information: Imp: progressing well. rec: axr. antibiotic rx. further treatment t/f, ie lithotripsy - Date & Time of Note Date: 01/20/17 Time: 12:52
--- NOTE | 2017-01-20 13:48 | CP.PCM.PN ---
Subjective - Date & Time of Evaluation Date of Evaluation: 01/20/17 Time of Evaluation: 13:48 - Subjective Subjective: afebrile,, Feeling better. Anxious to go home. Blood cultures repeat negative growth. Urine cultures repeat negative growth. case discussed with UTILIZATION MANAGEMENT MANAGER MS GARDINER, PATIENT CAN BE SWITCHED TO BY MOUTH CIPRO 500 MG TWICE A DAY FOR 8 DAYS TO COMPLETE 14 DAYS OF THERAPY. PATIENT STATUS POST URETERAL STENT AND ESCHERICHIA COLI BACTEREMIA WITH ESCHERICHIA COLI UROSEPSIS Objective - Vital Signs/Intake and Output Vital Signs (last 24 hours): Temp Pulse Resp BP Pulse Ox 98.2 F 110 H 20 102/65 97 01/20/17 07:15 01/20/17 07:15 01/20/17 07:15 01/20/17 07:36 01/20/17 07:15 - Medications Medications: Current Medications Acetaminophen (Tylenol 325mg Tab) 650 mg PO Q6 PRN PRN Reason: Headache Last Admin: 01/19/17 15:48 Dose: 650 mg Ciprofloxacin (Cipro 400mg/200ml Dsw) 400 mg in 200 mls @ 133 mls/hr IVPB Q12H [facility] Last Admin: 01/20/17 13:42 Dose: 133 mls/hr - Labs Labs: 01/20/17 07:45 01/20/17 07:45 - Constitutional Appears: No Acute Distress - Head Exam Head Exam: NORMAL INSPECTION - Eye Exam Eye Exam: EOMI, PERRL - ENT Exam ENT Exam: Normal Oropharynx - Neck Exam Neck Exam: Normal Inspection - Respiratory Exam Respiratory Exam: Clear to Ausculation Bilateral - Cardiovascular Exam Cardiovascular Exam: REGULAR RHYTHM, +S1, +S2 - GI/Abdominal Exam GI & Abdominal Exam: Soft. absent: Tenderness - Extremities Exam Extremities Exam: Normal Capillary Refill. absent: Calf Tenderness, Pedal Edema - Back Exam Back Exam: absent: CVA tenderness (L), CVA tenderness (R) - Neurological Exam Neurological Exam: Alert, Awake, CN II-XII Intact, Normal Gait, Oriented x3 - Psychiatric Exam Psychiatric exam: Normal Mood - Skin Skin Exam: Normal Color Assessment and Plan (1) Sepsis, Gram negative Assessment & Plan: patient had Escherichia coli bacteremia secondary to sepsis. Presently repeat blood cultures negative growth and urine cultures negative growth. As discussed with staff patient to be discharged on by mouth Cipro 500 mg twice a day for 8 days to complete 2 weeks of therapy. Status: Acute (2) Pyelonephritis Status: Acute (3) Ureteral stone with hydronephrosis Assessment & Plan: patient status post ureteral stent. Follow-up with Dr. Pack for stent removal as outpatient. Status: Acute (4) Costochondral chest pain Status: Acute
--- NOTE | 2017-01-20 13:54 | CP.PCM.DIS ---
Provider - Provider Date of Admission: 01/15/17 15:59 Attending physician: Ziyad Enrique MD Time Spent in preparation of Discharge (in minutes): 30 Hospital Course - Lab Results Lab Results: Micro Results 01/18/17 08:10 Blood-Venous Blood Culture - Preliminary NO GROWTH AFTER 48 HOURS 01/18/17 08:40 Blood-Venous Blood Culture - Preliminary NO GROWTH AFTER 48 HOURS 01/18/17 Unknown Urine,Clean Catch Urine Culture - Final No Growth (<1,000 CFU/ML) 01/15/17 19:00 Blood Blood Culture - Final Escherichia Coli 01/15/17 19:00 Blood Gram Stain - Final 01/15/17 20:18 Urine,Kidney Urine Culture - Final Escherichia Coli 01/15/17 20:18 Urine Urine Culture - Final Escherichia Coli 01/15/17 16:59 Urine,Clean Catch Urine Culture - Final Escherichia Coli Most Recent Lab Values WBC 7.9 K/uL (4.8-10.8) 01/20/17 07:45 RBC 4.55 Mil/uL (3.80-5.20) 01/20/17 07:45 Hgb 12.6 g/dL (11.0-16.0) 01/20/17 07:45 Hct 37.9 % (34.0-47.0) 01/20/17 07:45 MCV 83.5 fL (81.0-99.0) 01/20/17 07:45 MCH 27.6 pg (27.0-31.0) 01/20/17 07:45 MCHC 33.1 g/dL (33.0-37.0) 01/20/17 07:45 RDW 14.3 % (11.5-14.5) 01/20/17 07:45 Plt Count 299 K/uL (130-400) 01/20/17 07:45 MPV 7.1 fL (7.2-11.7) L 01/20/17 07:45 Neut % (Auto) 46.7 % (50.0-75.0) L 01/20/17 07:45 Lymph % (Auto) 38.9 % (20.0-40.0) 01/20/17 07:45 Blaine % (Auto) 10.8 % (0.0-10.0) H 01/20/17 07:45 Eos % (Auto) 2.6 % (0.0-4.0) 01/20/17 07:45 Baso % (Auto) 1.0 % (0.0-2.0) 01/20/17 07:45 Neut # 3.7 K/uL (1.8-7.0) 01/20/17 07:45 Lymph # 3.1 K/uL (1.0-4.3) 01/20/17 07:45 Blaine # 0.9 K/uL (0.0-0.8) H 01/20/17 07:45 Eos # 0.2 K/uL (0.0-0.7) 01/20/17 07:45 Baso # 0.1 K/uL (0.0-0.2) 01/20/17 07:45 Neutrophils % (Manual) 78 % (50-75) H 01/15/17 12:28 Band Neutrophils % 17 % (0-2) H* 01/15/17 12:28 Lymphocytes % (Manual) 2 % (20-40) L 01/15/17 12:28 Monocytes % (Manual) 3 % (0-10) 01/15/17 12:28 Platelet Estimate Normal (NORMAL) 01/15/17 12:28 RBC Morphology Normal 01/15/17 12:28 pO2 46 mm/Hg (30-55) 01/15/17 16:55 VBG pH 7.36 (7.32-7.43) 01/15/17 16:55 VBG pCO2 39 mmHg (40-60) L 01/15/17 16:55 VBG HCO3 22.0 mmol/L 01/15/17 16:55 VBG Total CO2 23.2 mmol/L (22-28) 01/15/17 16:55 VBG O2 Sat (Calc) 89.0 % (40-65) H 01/15/17 16:55 VBG Base Excess -3.1 mmol/L (0.0-2.0) L 01/15/17 16:55 VBG Potassium 3.5 mmol/L (3.6-5.2) L 01/15/17 16:55 Sodium 141.0 mmol/l (132-148) 01/15/17 16:55 Chloride 108.0 mmol/L (98-107) H 01/15/17 16:55 Glucose 183 mg/dl (65-105) H 01/15/17 16:55 Lactate 3.3 mmol/L (0.7-2.1) H 01/15/17 16:55 Sodium 139 mmol/L (132-148) 01/20/17 07:45 Potassium 3.8 mmol/L (3.6-5.2) 01/20/17 07:45 Chloride 100 mmol/L (98-107) 01/20/17 07:45 Carbon Dioxide 24 mmol/L (22-30) 01/20/17 07:45 Anion Gap 19 (10-20) 01/20/17 07:45 BUN 8 mg/dL (7-17) 01/20/17 07:45 Creatinine 0.8 MG/DL (0.7-1.2) 01/20/17 07:45 Est GFR ( Amer) > 60 01/20/17 07:45 Est GFR (Non-Af Amer) > 60 01/20/17 07:45 POC Glucose (mg/dL) 150 mg/dL (65-110) H 01/16/17 12:02 Random Glucose 124 mg/dL (65-105) H 01/20/17 07:45 Lactic Acid 1.0 mmol/L (0.7-2.1) 01/17/17 08:10 Calcium 8.7 mg/dl (8.6-10.4) 01/20/17 07:45 Total Bilirubin 0.8 mg/dL (0.2-1.3) 01/20/17 07:45 Direct Bilirubin 0.5 mg/dL (0.0-0.4) H 01/16/17 08:32 AST 31 U/L (14-36) 01/20/17 07:45 ALT 48 U/L (9-52) 01/20/17 07:45 Alkaline Phosphatase 133 U/L (38-126) H D 01/20/17 07:45 Total Creatine Kinase 44 U/L (30-135) 01/16/17 08:32 CK-MB (Mass) 0.79 ng/mL (0.0-3.38) 01/16/17 08:32 Troponin I, Quant 0.0570 ng/mL (0.00-0.120) 01/16/17 08:32 Total Protein 6.8 g/dL (6.3-8.3) 01/20/17 07:45 Albumin 3.3 g/dL (3.5-5.0) L 01/20/17 07:45 Globulin 3.5 gm/dL (2.2-3.9) 01/20/17 07:45 Albumin/Globulin Ratio 1.0 (1.0-2.1) 01/20/17 07:45 Lipase 34 U/L (23-300) 01/15/17 12:28 Procalcitonin 1.13 NG/ML (0.19-0.49) H 01/17/17 08:10 Venous Blood Potassium 3.5 mmol/L (3.6-5.2) L 01/15/17 16:55 Urine Color Yellow (YELLOW) 01/15/17 13:33 Urine Clarity Clear (Clear) 01/15/17 13:33 Urine pH 8.0 (5.0-8.0) 01/15/17 13:33 Ur Specific [place] 1.017 (1.003-1.030) 01/15/17 13:33 Urine Protein Negative mg/dL (NEGATIVE) 01/15/17 13:33 Urine Glucose (UA) 2+ mg/dL (Normal) H 01/15/17 13:33 Urine Ketones 1+ mg/dL (NEGATIVE) H 01/15/17 13:33 Urine Blood Negative (NEGATIVE) 01/15/17 13:33 Urine Nitrate Negative (NEGATIVE) 01/15/17 13:33 Urine Bilirubin Negative (NEGATIVE) 01/15/17 13:33 Urine Urobilinogen Normal mg/dL (0.2-1.0) 01/15/17 13:33 Ur Leukocyte Esterase Neg Bridget/uL (Negative) 01/15/17 13:33 Urine WBC (Auto) 2 /hpf (0-5) 01/15/17 13:33 Urine RBC (Auto) 2 /hpf (0-3) 01/15/17 13:33 Ur Squamous Epith Cells 2 /hpf (0-5) 01/15/17 13:33 - Hospital Course Hospital Course: LEFT RENAL ENRICO PAIN RADIATING TO L GROIN . IN ER A SMALL LEFT STONE . NO HYDRO PAST HIST. RENAL STONES , REMOVED AT [facility] UROLOGY PLACED URETRAL STENT ON LEFT . BOTH URINE AND BLOOD WERE POS FOR E.COLI PT RECEIVED IV AB PER ID REPEAT BC/URINE NEG PT D/C ON PO AB F/U DR. TORRES /PMD Discharge Exam - Head Exam Head Exam: NORMAL INSPECTION Discharge Plan - Follow Up Plan Condition: IMPROVED Disposition: HOME/ ROUTINE
[2017-01-20 15:55] VITALS: BP 101/66; PULSE 89; TEMP 98.6; O2SAT 95
--- NOTE | 2017-01-20 17:31 | RAD ---
HISTORY: urolithiasis COMPARISON: No prior. FINDINGS: BOWEL: Retained stool. No evidence of bowel obstruction. Left ureteral stent noted. 4-5 mm calculus in the region of the left kidney. BONES: Normal. OTHER FINDINGS: None. IMPRESSION: 4-5 mm calculus noted, likely left renal. Left ureteral stent noted.
--- NOTE | 2017-01-20 18:19 | CP.PCM.PN ---
Subjective - Date & Time of Evaluation Date of Evaluation: 01/20/17 Time of Evaluation: 11:00 - Subjective Subjective: Alert, awake, no complaints of pain or distress. Objective - Vital Signs/Intake and Output Vital Signs (last 24 hours): Temp Pulse Resp BP Pulse Ox 98.6 F 89 20 101/66 95 01/20/17 15:53 01/20/17 15:53 01/20/17 15:53 01/20/17 15:53 01/20/17 15:53 - Labs Labs: 01/20/17 07:45 01/20/17 07:45 Assessment and Plan - Assessment and Plan (Free Text) Assessment: Patient admitted with urosepsis, seen and examined. Feels much better, cleared by DR Pack for discharge home. d/w DR Brown and DR Enrique, plan to discharge home on po cipro for 8 more days. Advised to follow up with DR Pack for stent removal. To follow up with PMD in 1 week.
--- NOTE | 2017-01-31 08:21 | CARD ---
APPROVED REPORT EKG Measurement Heart [id number] <Conclusion> Normal sinus rhythm Possible Inferior infarct, age undetermined Abnormal ECG
--- NOTE | 2017-02-11 02:33 | OP ---
PROCEDURE DATE: 01/15/2017 This is a redictation of an operative report PREOPERATIVE DIAGNOSES: 1. Left renal colic. 2. Left hydronephrosis. 3. Left ureteral calculus. 4. Urinary tract infection. POSTOPERATIVE DIAGNOSES: 1. Left renal colic. 2. Left hydronephrosis. 3. Left ureteral calculus. 4. Urinary tract infection. PROCEDURE: 1. Cystoscopy. 2. Left retrograde pyelogram. 3. Insertion of left ureteral stent. 4. Exam under anesthesia. OPERATING SURGEON: Dr. Angelina Pack. DESCRIPTION OF PROCEDURE: The patient was placed in the lithotomy position and genitalia were prepped and draped sterilely. Anesthesia was applied by the anesthesiologist. Social Research Assistant film of the abdomen revealed the left ureteral calculus. A 22-Lebanese cystoscope sheath was introduced with obturator through the urethra and bladder was inspected with a 30-degree lens. Urine was sent for bacteriologic examination. The bladder was inspected. There was no bladder tumor. There was no bladder stone. There was mild inflammation of the bladder mucosa. The ureteral orifices were normal in position and shape. A 0.035 inch guidewire was inserted into the left ureteral orifice was passed up to the level of the stone. The guidewire was threaded up to the level of the kidney. An open-ended catheter was inserted over the guidewire. The urine from the kidney was sent for bacteriologic examination. It was . Iodinated contrast material was instilled. The left retrograde pyelogram revealed left hydronephrosis. A 0.035 inch guidewire was reinserted into the kidney. A 6-Lebanese multi-length stent was inserted over the guidewire. Proper stent position was confirmed with fluoroscopy and endoscopy. The guidewire was removed and the stent was left in place. The bladder was then drained. Cystoscope sheath was removed. Exam under anesthesia was performed. There was no abnormal pelvic mass or fixation noted. The patient tolerated the procedure without complication. Angelina Pack MD
== END 2017-01-20 15:52 | disposition home or self-care (01) | DRG 901 ==
LOC: C.ER 11:28 → C.9E 15:59 → C.3T 19:21
PROVIDERS: ADMIT Internal Medicine Cardiovascular Disease; ATTEND Internal Medicine Cardiovascular Disease
PROC: BT1F1ZZ Fluoroscopy of Left Kidney, Ureter and Bladder using Low Osmolar Contrast (ICD-10-PCS; 2017-01-15)
PROC: 0T778DZ Dilation of Left Ureter with Intraluminal Device, Via Natural or Artificial Opening Endoscopic (ICD-10-PCS; principal; 2017-01-15 20:28)
DX: A41.51 Sepsis due to Escherichia coli [E. coli] (principal); N13.6 Pyonephrosis; N18.9 Chronic kidney disease, unspecified; N39.0 Urinary tract infection, site not specified; Z87.442 Personal history of urinary calculi; B96.20 Unspecified Escherichia coli [E. coli] as the cause of diseases classified elsewhere; R65.20 Severe sepsis without septic shock; Z88.0 Allergy status to penicillin; M94.0 Chondrocostal junction syndrome [Tietze]

== ENCOUNTER → 2017-03-03 | Day surgery (SDC) | payer OTHER ==
[2017-02-21 09:06] VITALS: BMI 37.8
[~2017-03-03] MED LIST: Ciprofloxacin 400mg/200ml D5W 400 MG/200 ML BAG IVPB ONE; HYDROmorphone 0.5 mg/0.5 ml ISec IVP PRN; Iohexol 240 200 ML IJ ONE; Lactated Ringer's 1,000 ML IV ONE; Lidocaine Hydrochloride 5 ML INJ ONE; Midazolam 2 MG/2 ML VIAL ONE; Propofol 10 mg/ml Inj (20 ML) ONE
--- NOTE | 2017-03-03 09:35 | PCM.SURG1 ---
Surgeon's Initial Post Op Note - Surgeon's Notes Surgeon: maynor knight [employer] Installation Manager: none Type of Anesthesia: IV Sedation Pre-Operative Diagnosis: uroloithiasis Operative Findings: same Post-Operative Diagnosis: same Operation Performed: cysto, L ureteral stent removal Specimen/Specimens Removed: urine. stent removed Estimated Blood Loss: EBL {In ML}: 0 Blood Products Given: N/A Drains Used: No Drains Post-Op Condition: Good Date of Surgery/Procedure: 03/03/17 Time of Surgery/Procedure: 09:30
[2017-03-03 11:02] VITALS: RESP 16
[2017-03-03 12:06] VITALS: BP 100/54; PULSE 72; TEMP 98.2; O2SAT 100
--- NOTE | 2017-03-04 08:13 | OP ---
UROLOGY OPERATIVE REPORT PROCEDURE DATE: 03/03/2017 PREOPERATIVE DIAGNOSIS: Urolithiasis. POSTOPERATIVE DIAGNOSIS: Urolithiasis. PROCEDURE: Cystoscopy, removal of left ureteral stent, and examined under anesthesia. OPERATING SURGEON: Angelina Pack MD DESCRIPTION OF PROCEDURE: Water Plumber film of the abdomen including oblique views were obtained. The x-rays were reviewed. There were no stones along the course of the ureteral stent. There were no stones in the bladder. There was a 1 to 2 mm faint radiodensity in the area of the left kidney of the left mid upper pole lateral to the ureteral stent coil within the pelvis. The patient was placed in the lithotomy position. Genitalia were prepped and draped sterilely and sedation was applied by the anesthesiologist. Perioperative antibiotics had been administered. The genitalia were prepped and draped sterilely. A 22-Macedonian cystoscope sheath was introduced with obturator. was sent back examination. The bladder was inspected. Left ureteral stent was identified and removed along the cystoscope sheath. FINDINGS: There was mild inflammation of the bladder mucosa. There was no stone or tumor within the bladder. Exam under anesthesia was performed. There was no abnormal pelvic mass, fixation, or induration. There was no adnexal mass. The patient tolerated the procedure without complication. Angelina Pack MD cc: Angelina Pack MD
--- NOTE | 2017-03-04 15:44 | RAD ---
HISTORY: UROLITHIASIS COMPARISON: No prior. FINDINGS: BOWEL: Three films labeled hose wrapper are submitted. The bowel gas pattern is unremarkable. A left ureteral stent is present. There is a 4 mm rounded calculus overlying the mid left kidney, likely in the renal pelvis. This is similar to the finding on 01/15/2017. No other abnormal intra-abdominal calcifications are identified. BONES: Normal. OTHER FINDINGS: None. IMPRESSION: Left ureteral stent. 4 mm calculus likely in left renal pelvis.
== END | disposition home or self-care (01) ==
LOC: C.SDS 07:01
PROVIDERS: ATTEND Urology
DX: N20.9 Urinary calculus, unspecified (principal); Z88.0 Allergy status to penicillin
CPT/HCPCS: 52310; 74022; 87086; J0744; J7120

== ENCOUNTER 2017-03-05 16:59 | Emergency (ER) | payer OTHER ==
[2017-03-05 17:00] VITALS: BMI 37.8
[2017-03-05] MEDS ORDERED: Sodium Chloride 0.9% 1,000 ML IV ONE (17:26)
--- NOTE | 2017-03-05 18:05 | C.PDOC ---
History Of Present Illness 56 y/o female with Hx of Kidney stones presents to ED with complaints of abdominal pain, x1 episode of vomiting today. Patient reports she had a stent removed on Friday and reports mild constipation. Patient denies fever, chills, back pain, vaginal bleeding, urinary symptoms or any other complaints at this time. Time Seen by Provider: 03/05/17 17:21 Chief Complaint (Nursing): Abdominal Pain History Per: Patient History/Exam Limitations: no limitations Onset/Duration Of Symptoms: Days Current Symptoms Are (Timing): Still Present Past Medical History Reviewed: Historical Data, Nursing Documentation, Vital Signs Vital Signs: Last Vital Signs Temp 98.6 F 03/05/17 17:05 Pulse 79 03/05/17 17:05 Resp 18 03/05/17 17:05 BP 146/99 H 03/05/17 17:05 Pulse Ox 97 03/05/17 19:11 - Medical History PMH: Kidney Stones, Chronic Kidney Disease Surgical History: No Surg Hx - [facility] Procedures CYSTOSCOPY NEC (05/02/14) DILATION OF LEFT URETER WITH INTRALUMINAL DEVICE, ENDO (01/15/17) FLUOROSCOPY KIDNEY, URETER, BLADDER, L W L OSM CONTRAST (01/15/17) REMOV URETERAL DRAIN (05/02/14) RETROGRADE PYELOGRAM (04/08/14) URETERAL CATHETERIZATION (04/08/14) Family History: States: No Known Family Hx - Social History Hx Tobacco Use: No Hx Alcohol Use: No Hx Substance Use: No - Immunization History Hx Tetanus Toxoid Vaccination: No Hx Influenza Vaccination: Yes Hx Pneumococcal Vaccination: No Review Of Systems Constitutional: Negative for: Fever, Chills Gastrointestinal: Positive for: Vomiting, Abdominal Pain. Negative for: Diarrhea Genitourinary: Negative for: Dysuria, Frequency, Hematuria Musculoskeletal: Negative for: Back Pain Skin: Negative for: Rash Physical Exam - Physical Exam Appears: Non-toxic, No Acute Distress Skin: Normal Color, Warm, Dry, No Rash Head: Atraumatic, Normacephalic, No Abrasion Eye(s): bilateral: Normal Inspection Oral Mucosa: Moist Neck: Normal ROM, Supple Chest: Symmetrical Cardiovascular: Rhythm Regular, No Murmur Respiratory: Normal Breath Sounds, No Rales, No Rhonchi, No Wheezing Gastrointestinal/Abdominal: Soft, Tenderness (mild epigastric), No Guarding, No Rebound Back: No CVA Tenderness, No Paraspinal Tenderness Extremity: Normal ROM, Capillary Refill (<2 seconds) Neurological/Psych: Oriented x3 ED Course And Treatment - Laboratory Results Result Diagrams: 03/05/17 18:19 03/05/17 18:19 Lab Interpretation: No Acute Changes O2 Sat by Pulse Oximetry: 97 (RA) Pulse Ox Interpretation: Normal - Other Rad No standard instances X-Ray: Interpreted by Me Interpretation: No OBS Progress Note: treated with IVF NSS, pepcid and zofran. On re-evaluation abdomen soft feeling better Reassessment Condition: Improved Medical Decision Making Medical Decision Making: Plan: * Obstructive series * labs * iv fluids * Pepcid and Zofran Disposition Counseled Patient/Family Regarding: Studies Performed, Diagnosis, Need For Followup, Rx Given - Disposition Referrals: [facility] [Outside] [facility] [Outside] Disposition: HOME/ ROUTINE Disposition Time: 19:10 Condition: IMPROVED Additional Instructions: Follow up with your PMD or clinic and urologist for further evaluation Prescriptions: Ondansetron ODT [Zofran ODT] 1 odt PO BID PRN #6 odt PRN Reason: Nausea/Vomiting Polyethylene Glycol 3350 [Miralax] 17 gra PO DAILY PRN #10 ml PRN Reason: Constipation Instructions: Constipation (ED), Acute Nausea and Vomiting (ED) Forms: [employer] [facility] (Nicaraguan) - POA Present On Arrival: None - Clinical Impression Clinical Impression: Constipation, Nausea & vomiting, Vomiting - PA / MULTIMEDIA ARTIST / Resident Statement MD/DO has reviewed & agrees with the documentation as recorded. - Scribe Statement The provider has reviewed the documentation as recorded by the Kathia Resendiz All medical record entries made by the Kathia were at my direction and personally dictated by me. I have reviewed the chart and agree that the record accurately reflects my personal performance of the history, physical exam, medical decision making, and the department course for this patient. I have also personally directed, reviewed, and agree with the discharge instructions and disposition.
[2017-03-05] MEDS ORDERED: Sodium Chloride 0.9% 1,000 ML ONE (18:08)
[2017-03-05 18:31] LABS: BASO # 0.1 K/uL (0.0-0.2); BASO % 0.6 % (0.0-2.0); EOS # 0.3 K/uL (0.0-0.7); EOS % 2.6 % (0.0-4.0); HEMATOCRIT 36.3 % (34.0-47.0); LYMPH # 2.6 K/uL (1.0-4.3); LYMPH % 26.6 % (20.0-40.0); MEAN CELL VOLUME 82.7 fL (81.0-99.0); MEAN CORPUSCULAR HEMOGLOBIN 27.2 pg (27.0-31.0); MEAN CORPUSCULAR HGB CONC 32.9 g/dL (33.0-37.0); MEAN PLATELET VOLUME 7.5 fL (7.2-11.7); MONO # 0.5 K/uL (0.0-0.8); MONO % 4.8 % (0.0-10.0); RED CELL DISTRIBUTION WIDTH 14.2 % (11.5-14.5); WHITE BLOOD COUNT 9.9 K/uL (4.8-10.8)
[2017-03-05 18:37] LABS: CHLORIDE 104 mmol/L (98-107); SODIUM 141 mmol/L (132-148)
[2017-03-05 18:38] LABS: POTASSIUM 4.5 mmol/L (3.6-5.2)
[2017-03-05 18:40] LABS: ALB/GLOB RATIO 1.3 (1.0-2.1); ALKALINE PHOSPHATASE 77 U/L (38-126); ALT/SGPT 33 U/L (9-52); AST/SGOT 46 U/L (14-36); BILIRUBIN,TOTAL 0.6 mg/dL (0.2-1.3); BLOOD UREA NITROGEN 13 mg/dL (7-17); CALCIUM 8.9 mg/dl (8.6-10.4); CARBON DIOXIDE 27 mmol/L (22-30); GFR AFRICAN-AMERICAN > 60; GLUCOSE,RANDOM 131 mg/dL (65-105); TOTAL PROTEIN 7.2 g/dL (6.3-8.3)
[2017-03-05 19:00] LABS: RBC URINE 1 /hpf (0-3); URINE BILIRUBIN NEGATIVE (NEGATIVE); URINE BLOOD NEGATIVE (NEGATIVE); URINE COLOR Yellow (YELLOW); URINE GLUCOSE (UA) NORMAL (Normal); URINE KETONE NEGATIVE (NEGATIVE); URINE LEUKOCYTE ESTERASE NEG Leu/uL (Negative); URINE PROTEIN NEGATIVE (NEGATIVE); URINE UROBILINOGEN NORMAL mg/dL (0.2-1.0); WBC URINE 1 /hpf (0-5)
[2017-03-05 19:14] VITALS: BP 117/79; PULSE 77; RESP 20; TEMP 98; O2SAT 100
--- NOTE | 2017-03-06 08:35 | RAD ---
PROCEDURE: Radiographs of the chest and abdomen (obstructive series) HISTORY: Abd Pain COMPARISON: No prior. TECHNIQUE: AP radiograph of the chest, with upright and supine radiographs of the abdomen. FINDINGS: CHEST: Lungs: Clear. Cardiovascular: Normal size heart. No pulmonary vascular congestion. Pleura: No pleural fluid. No pneumothorax. Other findings: None. ABDOMEN AND PELVIS: Bowel: Diffuse colonic stool retention. No evidence of mechanical obstruction. Free air: None. Bones: Bilateral sclerotic SI joint arthrosis. Bilateral hip arthrosis. Transitional elements right lumbosacral level. Thoraco lumbar spondylosis Other findings: None. IMPRESSION: No infiltrate. No evidence of mechanical bowel obstruction. Stool retention
== END 2017-03-05 19:57 | disposition home or self-care (01) ==
LOC: C.ER 16:59
DX: K59.00 Constipation, unspecified (principal); R11.2 Nausea with vomiting, unspecified
CPT/HCPCS: 74022; 80053; 81001; 83690; 85025; 96374; 96375; 99284; J2405; J7040

== ENCOUNTER 2018-05-03 20:03 | Inpatient (IN) | payer OTHER ==
[2018-05-03 20:03] VITALS: BMI 37.8
[2018-05-03] MEDS ORDERED: Sodium Chloride 0.9% 1,000 ML IV ONE (20:47)
--- NOTE | 2018-05-03 20:54 | C.PDOC ---
History Of Present Illness 57 y/o female, with PMHx of kidney stones, presents to ER complaining of constant burning right-sided abdominal pain that worsened last night. Patient states she took ibuprofen but with no relief. She notes of back pain and dysuria but denies hematuria, fever, chills, or vomiting. Last bowel movement was 2 days ago. Denies having high blood pressure or diabetes. <Ena Huggins - Last Filed: 05/03/18 23:30> History Per: Patient History/Exam Limitations: no limitations Onset/Duration Of Symptoms: Days Current Symptoms Are (Timing): Still Present <Ena Huggins - Last Filed: 05/03/18 23:30> <Jagdish Avila - Last Filed: 05/04/18 03:10> Time Seen by Provider: 05/03/18 20:29 Chief Complaint (Nursing): Abdominal Pain Past Medical History Reviewed: Historical Data, Nursing Documentation, Vital Signs Vital Signs: Last Vital Signs Temp 97.8 F 05/03/18 20:20 Pulse 68 05/03/18 20:20 Resp 20 05/03/18 20:20 BP 159/116 H 05/03/18 20:20 Pulse Ox 99 05/03/18 20:20 - Medical History PMH: Kidney Stones, Chronic Kidney Disease - [facility] Procedures CYSTOSCOPY NEC (05/02/14) DILATION OF LEFT URETER WITH INTRALUMINAL DEVICE, ENDO (01/15/17) FLUOROSCOPY KIDNEY, URETER, BLADDER, L W L OSM CONTRAST (01/15/17) REMOV URETERAL DRAIN (05/02/14) RETROGRADE PYELOGRAM (04/08/14) URETERAL CATHETERIZATION (04/08/14) Family History: States: No Known Family Hx - Social History Hx Tobacco Use: No Hx Alcohol Use: No Hx Substance Use: No - Immunization History Hx Tetanus Toxoid Vaccination: No Hx Influenza Vaccination: Yes Hx Pneumococcal Vaccination: No <Ena Huggins - Last Filed: 05/03/18 23:30> Vital Signs: Last Vital Signs Temp 97.8 F 05/03/18 20:20 Pulse 68 05/03/18 20:20 Resp 20 05/03/18 20:20 BP 159/116 H 05/03/18 20:20 Pulse Ox 99 05/03/18 23:30 - [facility] Procedures CYSTOSCOPY NEC (05/02/14) DILATION OF LEFT URETER WITH INTRALUMINAL DEVICE, ENDO (01/15/17) FLUOROSCOPY KIDNEY, URETER, BLADDER, L W L OSM CONTRAST (01/15/17) REMOV URETERAL DRAIN (05/02/14) RETROGRADE PYELOGRAM (04/08/14) URETERAL CATHETERIZATION (04/08/14) <Jagdish Avila R - Last Filed: 05/04/18 03:10> Review Of Systems Except As Marked, All Systems Reviewed And Found Negative. Constitutional: Negative for: Fever, Chills Gastrointestinal: Positive for: Abdominal Pain (right-sided). Negative for: Nausea, Vomiting, Diarrhea Genitourinary: Positive for: Dysuria. Negative for: Hematuria Musculoskeletal: Positive for: Back Pain <Ena Huggins - Last Filed: 05/03/18 23:30> Physical Exam - Physical Exam Appears: Non-toxic, No Acute Distress Skin: Warm, Dry Head: Atraumatic, Normacephalic Eye(s): bilateral: Normal Inspection, PERRL, EOMI Oral Mucosa: Moist Cardiovascular: Rhythm Regular, No Murmur Respiratory: No Rales, No Rhonchi, No Wheezing, Other (Normal inspiratory effort, Lungs clear to auscultation) Gastrointestinal/Abdominal: Soft, Tenderness (to right mid-abdomen), No Rebound Back: No CVA Tenderness Extremity: No Pedal Edema Neurological/Psych: Oriented x3, Normal Speech <Ena Huggins - Last Filed: 05/03/18 23:30> ED Course And Treatment - Laboratory Results Result Diagrams: 05/03/18 21:04 05/03/18 21:04 O2 Sat by Pulse Oximetry: 99 (RA) Pulse Ox Interpretation: Normal - CT Scan/US CT abd/pel Other Rad Studies (CT/US): Read By Radiologist, Radiology Report Reviewed CT/US Interpretation: Impression: 1. Cholelithiasis with severely distended gallbladder and thickened wall compatible with cholecystitis. Ultrasound would be recommended for further evaluation. 2. 1 mm nonobstructing stone in the right kidney. No evidence of hydronephrosis. 3. No obstructive or inflammatory bowel changes. <Ena Huggins - Last Filed: 05/03/18 23:30> - Laboratory Results Result Diagrams: 05/03/18 21:04 05/03/18 21:04 <Avila,Jagdish R - Last Filed: 05/04/18 03:10> Medical Decision Making Medical Decision Making: Plan: --CT Abd/Pel --Bloodwork --Urinaylsis --IV Fluids --Toradol Results: * Urine is contaminated. No blood detected. Progress: -- CT of Abd/Pel shows cholelithiasis. Ultrasound of gallbladder recommended. -- Patient agrees with plan. US gallbladder ordered. <Ena Huggins - Last Filed: 05/03/18 23:30> Medical Decision Makin:[address] Alarcon, Surgery. Requested patient to be admitted. 03:[address] Velarde, IM. Agrees to admit patient to his service. <Jagdish Avila - Last Filed: 05/04/18 03:10> Disposition <Ena Huggins - Last Filed: 05/03/18 23:30> Discussed With : Dottie Velarde Doctor Will See Patient In The: Hospital Counseled Patient/Family Regarding: Diagnosis - Disposition Disposition Time: 02:49 - POA Present On Arrival: None <Jagdish Avila R - Last Filed: 05/04/18 03:10> - Disposition Referrals: Dc Alarcon MD [Staff Provider] - Disposition: HOSPITALIZED Condition: STABLE Forms: [facility] (Portuguese) - Clinical Impression Clinical Impression: Abdominal pain, Cholecystitis - Scribe Statement The provider has reviewed the documentation as recorded by the Kathia Cabrera Provider Attestation: All medical record entries made by the Juan Mibabimael were at my direction and personally dictated by me. I have reviewed the chart and agree that the record accurately reflects my personal performance of the history, physical exam, medical decision making, and the department course for this patient. I have also personally directed, reviewed, and agree with the discharge instructions and disposition. <Ena Huggins - Last Filed: 05/03/18 23:30>
[2018-05-03 21:09] LABS: BASO # 0.1 K/uL (0.0-0.2); BASO % 0.8 % (0.0-2.0); EOS # 0.3 K/uL (0.0-0.7); EOS % 3.6 % (0.0-4.0); HEMOGLOBIN 13.6 g/dL (11.0-16.0); LYMPH # 2.4 K/uL (1.0-4.3); LYMPH % 31.4 % (20.0-40.0); MEAN CELL VOLUME 82.7 fL (81.0-99.0); MEAN CORPUSCULAR HEMOGLOBIN 27.5 pg (27.0-31.0); MEAN CORPUSCULAR HGB CONC 33.2 g/dL (33.0-37.0); MONO # 0.5 K/uL (0.0-0.8); MONO % 6.4 % (0.0-10.0); NEUT # 4.5 K/uL (1.8-7.0); NEUT % 57.8 % (50.0-75.0); RBC 4.96 Mil/uL (3.80-5.20); WHITE BLOOD COUNT 7.7 K/uL (4.8-10.8)
[2018-05-03 21:22] LABS: ALB/GLOB RATIO 1.2 (1.0-2.1); ALT/SGPT 60 U/L (9-52); AST/SGOT 80 U/L (14-36); BLOOD UREA NITROGEN 12 mg/dL (7-17); CALCIUM 9.2 mg/dl (8.6-10.4); GFR NON-AFRICAN AMERICAN > 60; LIPASE 77 U/L (23-300)
[2018-05-03] MEDS ORDERED: Sodium Chloride 0.9% 250 ML IV ONE (21:26)
[2018-05-03 21:50] LABS: SQUAMOUS EPITHIAL 12 /hpf (0-5); URINE BACTERIA OCC (<OCC); URINE BILIRUBIN NEGATIVE (NEGATIVE); URINE BLOOD NEGATIVE (NEGATIVE); URINE CLARITY Clear (Clear); URINE COLOR Yellow (YELLOW); URINE GLUCOSE (UA) NORMAL (Normal); URINE LEUKOCYTE ESTERASE NEG Leu/uL (Negative); URINE PROTEIN NEGATIVE (NEGATIVE)
[2018-05-04] MEDS ORDERED: Ciprofloxacin 400mg/200ml D5W 400 MG/200 ML BAG IVPB STA (02:51)
[2018-05-04] MEDS ORDERED: metroNIDAZOLE IV 500 mg/100 ml 500 MG/100 ML BAG IVPB SCH (03:00)
[2018-05-04] MEDS ORDERED: metroNIDAZOLE IV 500 mg/100 ml 500 MG/100 ML BAG ONE (03:17)
[2018-05-04] MEDS ORDERED: metroNIDAZOLE IV 500 mg/100 ml 500 MG/100 ML BAG IVPB STA (03:21)
[2018-05-04] MEDS ORDERED: Ciprofloxacin 400mg/200ml D5W 400 MG/200 ML BAG IVPB ONE (04:08)
[2018-05-04] MEDS ORDERED: Oxycodone/Acetaminophen 5/325 mg Tab PO PRN (04:50)
--- NOTE | 2018-05-04 05:07 | CP.PCM.CON ---
History of Present Illness - History of Present Illness History of Present Illness: General surgery consult note for Dr. Alarcon Consulted for: acute cholecystitis Pt is a 57F with PMH of right nephrolithiasis s/p lithotripsy and ureteral stenting and PSH of who presented to the ED for RUQ abdominal pain for 2 days. Patient states that pain began the morning 2 days ago in the morning, is constant, and associated with right shoulder pain. Patient states that pain is worse with spicy food and greasy foods. Pain did not improve with percocet, so she came to the ER. Patient has nausea, but no vomiting. Patient has chronic constipation with last BM 2 days ago, which is her normal frequency. BM was nor mal in color and consistency, she denies any diarrhea, melena, hematochezia, fevers, chills, chest pain, SOB, dysuria. Patient does note that urine has a red tint but denies increased urinary frequency. Patient states that she has had similar pain multiple times before but has associated it with her nephrolithiasis. Father had gallstones with a surgery for necrotic gallbladder PMH: nephrolithiasis PSH: , lithotripsy ALL: PCN social: denies tobacco, ETOH, or drug use Review of Systems - Review of Systems All systems: reviewed and no additional remarkable complaints except (as per hpi) Past Patient History - Past Medical History & Family History Past Medical History?: Yes Past Family History: Reviewed and not pertinent - Past Social History Smoking Status: Never Smoked Alcohol: None Drugs: Denies Home Situation {Lives}: With Family - CARDIAC Hx Cardiac Disorders: No - PULMONARY Hx Respiratory Disorders: No - NEUROLOGICAL Hx Neurological Disorder: No - HEENT Hx HEENT Problems: No - RENAL Hx Chronic Kidney Disease: Yes Hx Kidney Stones: Yes - ENDOCRINE/METABOLIC Hx Endocrine Disorders: No - HEMATOLOGICAL/ONCOLOGICAL Hx Blood Disorders: No - INTEGUMENTARY Hx Dermatological Problems: No - MUSCULOSKELETAL/RHEUMATOLOGICAL Hx Musculoskeletal Disorders: No Hx Falls: No - GASTROINTESTINAL Hx Gastrointestinal Disorders: No - GENITOURINARY/GYNECOLOGICAL Hx Genitourinary Disorders: Yes Hx Urinary Tract Infection: Yes - PSYCHIATRIC Hx Substance Use: No - SURGICAL HISTORY Hx Surgeries: Yes Hx Section: Yes (2 x 25-30 years ago) Other/Comment: Left Stent placement [address] Pack. HX: 01/15/17-LEFT URETERAL STENT PLACEMENT - ANESTHESIA Hx Anesthesia Reactions: (post op nausea) Meds Allergies/Adverse Reactions: Allergies Allergy/AdvReac Type Severity Reaction Status Date / Time Penicillins Allergy RASH Verified 03/05/17 17:04 - Medications Medications: Current Medications Famotidine (Pepcid) 20 mg PO STAT STA Stop: 05/04/18 04:54 Famotidine (Pepcid) 20 mg PO DAILY EDINSON Ciprofloxacin (Cipro 400mg/200ml Dsw) 400 mg in 200 mls @ 133 mls/hr IVPB Q12H EDINSON; Protocol Metronidazole (Flagyl) 500 mg in 100 mls @ 100 mls/hr IVPB Q8H [facility]INSON; Protocol Morphine Sulfate (Morphine) 2 mg IVP Q4 PRN PRN Reason: Pain, severe (8-10) Oxycodone/Acetaminophen (Percocet 5/325 Mg Tab) 1 tab PO Q4H PRN PRN Reason: Pain, moderate (4-7) Stop: 05/07/18 04:51 Physical Exam - Constitutional Appears: Well, Non-toxic, No Acute Distress - Head Exam Head Exam: ATRAUMATIC, NORMOCEPHALIC - Eye Exam Eye Exam: Normal appearance. absent: Conjunctival injection, Scleral icterus - ENT Exam ENT Exam: Mucous Membranes Moist, Normal Oropharynx - Respiratory Exam Respiratory Exam: NORMAL BREATHING PATTERN. absent: Accessory Muscle Use, Respiratory Distress - Cardiovascular Exam Cardiovascular Exam: RRR - GI/Abdominal Exam GI & Abdominal Exam: Soft, Tenderness (RUQ and epigastrium moderate tenderness to palpation). absent: Distended, Rebound Additional comments: negative tirado's, negative mcburney's tenderness, negative rovsings - Extremities Exam Extremities exam: Positive for: pedal pulses present. Negative for: calf tenderness, pedal edema - Neurological Exam Neurological exam: Alert, Oriented x3 - Psychiatric Exam Psychiatric exam: Normal Affect, Normal Mood - Skin Skin Exam: Dry, Intact, Normal Color, Warm Results - Vital Signs Recent Vital Signs: Last Vital Signs Temp 97.8 F 05/03/18 20:20 Pulse 68 05/03/18 20:20 Resp 20 05/03/18 20:20 BP 159/116 H 05/03/18 20:20 Pulse Ox 99 05/03/18 23:30 - Labs Result Diagrams: 05/03/18 21:04 05/03/18 21:04 Labs: Laboratory Results - last 24 hr 05/03/18 05/03/18 05/03/18 21:04 21:04 21:40 WBC 7.7 RBC 4.96 Hgb 13.6 Hct 41.0 MCV 82.7 MCH 27.5 MCHC 33.2 RDW 15.0 H Plt Count 251 MPV 7.0 L Neut % (Auto) 57.8 Lymph % (Auto) 31.4 [place] % (Auto) 6.4 Eos % (Auto) 3.6 Baso % (Auto) 0.8 Neut # (Auto) 4.5 Lymph # (Auto) 2.4 [place] # (Auto) 0.5 Eos # (Auto) 0.3 Baso # (Auto) 0.1 Sodium 140 Potassium 4.3 Chloride 105 Carbon Dioxide 27 Anion Gap 12 BUN 12 Creatinine 0.7 Est GFR ( Amer) > 60 Est GFR (Non-Af Amer) > 60 Random Glucose 186 H Calcium 9.2 Total Bilirubin 0.7 AST 80 H D ALT 60 H D Alkaline Phosphatase 101 Total Protein 7.2 Albumin 4.0 Globulin 3.3 Albumin/Globulin Ratio 1.2 Lipase 77 Urine Color Yellow Urine Clarity Clear Urine pH 6.0 Ur Specific [place] 1.021 Urine Protein Negative Urine Glucose (UA) Normal Urine Ketones Negative Urine Blood Negative Urine Nitrate Negative Urine Bilirubin Negative Urine Urobilinogen 2.0 H Ur Leukocyte Esterase Neg Urine WBC (Auto) < 1 Urine RBC (Auto) 1 Ur Squamous Epith Cells 12 H Urine Bacteria Occ H - Imaging and Cardiology CT scan - abdomen Status: Image reviewed by me, Report reviewed by me US - abdomen Status: Image reviewed by me, Report reviewed by me Assessment & Plan - Assessment and Plan (Free Text) Assessment: 57F with acute cholecystitis Plan: Admit to med/surgery NPO except meds trend CBC, CMP PRN pain and nausea medication daily pepcid IV antibiotics incentive spirometer, scd's Pt is stable at this time--discussed option of surgery for possibly infected gallbladder with patient and family who stated they will discuss with her and make a decision. No immediate surgical intervention planned, will continue to monitor and discuss with patient Further recs per Dr. Agnes Phan, PGY2
[2018-05-04 05:17] LABS: BASO # 0.1 K/uL (0.0-0.2); BASO % 1.1 % (0.0-2.0); EOS # 0.3 K/uL (0.0-0.7); EOS % 4.2 % (0.0-4.0); HEMOGLOBIN 12.5 g/dL (11.0-16.0); LYMPH % 40.1 % (20.0-40.0); MEAN CELL VOLUME 82.8 fL (81.0-99.0); MEAN CORPUSCULAR HEMOGLOBIN 27.7 pg (27.0-31.0); MEAN CORPUSCULAR HGB CONC 33.5 g/dL (33.0-37.0); MEAN PLATELET VOLUME 7.2 fL (7.2-11.7); MONO # 0.4 K/uL (0.0-0.8); MONO % 5.6 % (0.0-10.0); NEUT # 3.7 K/uL (1.8-7.0); NRBC % 0.1 % (0.0-2.0); RBC 4.5 Mil/uL (3.80-5.20); RED CELL DISTRIBUTION WIDTH 15.1 % (11.5-14.5); WHITE BLOOD COUNT 7.5 K/uL (4.8-10.8)
[2018-05-04 05:40] LABS: ALB/GLOB RATIO 1.2 (1.0-2.1); ALBUMIN 3.3 g/dL (3.5-5.0); ALT/SGPT 57 U/L (9-52); AST/SGOT 67 U/L (14-36); BLOOD UREA NITROGEN 8 mg/dL (7-17); CALCIUM 8.3 mg/dl (8.6-10.4); GFR NON-AFRICAN AMERICAN > 60
[2018-05-04] MEDS: Lactated Ringer's 1,000 ML IV SCH ×3 (06:08→21:47)
[2018-05-04 08:21] LABS: INR 1.1; PROTHROMBIN TIME 12.1 SECONDS (9.7-12.2)
--- NOTE | 2018-05-04 08:37 | CT ---
Date of service: 05/03/2018 PROCEDURE: CT Abdomen and Pelvis without intravenous contrast HISTORY: Abdominal pain COMPARISON: 01/15/2017 TECHNIQUE: Multiple contiguous axial images were performed through the abdomen and pelvis without the use of intravenous contrast. Subsequently, sagittal and coronal reformatted images were obtained. Contrast dose: Radiation dose: Total exam DLP = 1025.27 mGy-cm. This CT exam was performed using one or more of the following dose reduction techniques: Automated exposure control, adjustment of the mA and/or kV according to patient size, and/or use of iterative reconstruction technique. FINDINGS: LOWER THORAX: 6 millimeter ground-glass nodule within the right middle lobe. Atelectasis at the lung bases. LIVER: Heterogeneous attenuation of the liver on this noncontrast scan. GALLBLADDER AND BILE DUCTS: Large 2.6 centimeter gallbladder calculus. Additional smaller calculi. Correlation with right upper quadrant ultrasound may helpful if clinically indicated. PANCREAS: Mild fatty atrophy of pancreas, particularly at the head of the pancreas. SPLEEN: Unremarkable. Splenule. ADRENALS: Unremarkable. No mass. KIDNEYS AND URETERS: Unremarkable. No hydronephrosis. No solid mass. VASCULATURE: Unremarkable. No aortic aneurysm. No aortic atherosclerotic calcification or mural plaque present. BOWEL: Unremarkable. No obstruction. No gross mural thickening. APPENDIX: Unremarkable. Normal appendix. PERITONEUM: Unremarkable. No free fluid. No free air. LYMPH NODES: Unremarkable. No enlarged lymph nodes. BLADDER: Unremarkable. REPRODUCTIVE: Unremarkable. BONES: Degenerative changes in the spine with paravertebral osteophytes. Bridging sclerosis of the right SI joint. Multilevel anterior osteophytosis throughout the thoracic spine. Loss of height of the T10 vertebral body with a suggestion of a vertebral body hemangioma noted at that level. OTHER FINDINGS: None. IMPRESSION: Large 2.6 centimeter gallbladder calculus. Additional smaller calculi. Suggestion of mild gallbladder wall thickening. Correlation with right upper quadrant ultrasound may helpful if clinically indicated to exclude acute cholecystitis. Mild fatty atrophy of the pancreas, particularly at the head of the pancreas. 6 millimeter ground-glass nodule within the right middle lobe. Additional findings as above. These findings were preliminarily reported at 10:10 p.m. on 05/03/[address] Kilo Lozano from [employer].
--- NOTE | 2018-05-04 08:39 | RAD ---
Date of service: 05/04/2018 HISTORY: pre-op eval COMPARISON: 01/16/2017. FINDINGS: LUNGS: The lungs are well inflated and clear. PLEURA: No pleural effusions or pneumothorax. CARDIOVASCULAR: The heart is normal in size. No aortic atherosclerotic calcification present. OSSEOUS STRUCTURES: Within normal limits for the patient's age. VISUALIZED UPPER ABDOMEN: Normal. OTHER FINDINGS: None. IMPRESSION: No active pulmonary disease.
--- NOTE | 2018-05-04 10:01 | US ---
Date of service: 05/04/2018 HISTORY: Abdominal pain/ct w/gallstones ?cholecytitis COMPARISON: CT abdomen and pelvis from 05/03/2018. TECHNIQUE: Sonographic evaluation of the abdomen. FINDINGS: LIVER: Measures 12.5 cm. There is diffuse increased echogenicity of the liver parenchyma. No mass. No intrahepatic bile duct dilatation. GALLBLADDER: The gallbladder is distended and there are multiple gallstones. There is gallbladder sludge and diffuse wall thickening. No pericholecystic fluid. Sonographic Davila's sign is negative. COMMON BILE DUCT: Measures 5.0 mm. No stones. No dilatation. PANCREAS: Unremarkable as visualized. No mass. No ductal dilatation. RIGHT KIDNEY: Measures 9.0cm. Normal echogenicity. No calculus, mass, or hydronephrosis. LEFT KIDNEY: Measures 10.7cm. Normal echogenicity. No calculus, mass, or hydronephrosis. SPLEEN: Normal in size and contour. No mass. AORTA: No aneurysmal dilatation. IVC: Unremarkable. OTHER FINDINGS: None. IMPRESSION: Distended gallbladder, cholelithiasis and mild diffuse gallbladder wall thickening. No evidence for pericholecystic fluid or positive sonographic Davila's sign. Acute calculus cholecystitis is a consideration. Clinical follow-up is advised. Diffuse increased echogenicity in the liver may reflect hepatic steatosis however parenchymal infectious/ inflammatory etiologies cannot be entirely excluded. Clinical and laboratory correlation is advised. A preliminary report was provided by [facility]. A preliminary report was provided by [facility] [facility].
[2018-05-04] MEDS: metroNIDAZOLE IV 500 mg/100 ml 500 MG/100 ML BAG IVPB SCH ×2 (14:07→20:33)
[2018-05-04] MEDS ORDERED: Propofol 10 mg/ml Inj (20 ML) ONE (16:14)
[2018-05-04] MEDS ORDERED: Midazolam 2 MG/2 ML VIAL ONE (16:14)
[2018-05-04] MEDS ORDERED: Bupivacaine 0.25% 20 ML INJ IJ ONE ×2 (16:14→16:59)
[2018-05-04] MEDS ORDERED: Clindamycin 600mg/50ml NS 600 MG/50 ML BAG IVPB ONE (16:14)
[2018-05-04] MEDS ORDERED: Lidocaine 2% w Epi 1:100,000 Inj IJ ONE (16:14)
[2018-05-04] MEDS ORDERED: Rocuronium 10 mg/ml (5 ml) ONE (16:14)
[2018-05-04] MEDS: Ciprofloxacin 400mg/200ml D5W 400 MG/200 ML BAG IVPB SCH (17:00)
[2018-05-04] MEDS ORDERED: Neostigmine Methylsulfate 3mg/3ml Syringe IV ONE (17:20)
--- NOTE | 2018-05-04 17:56 | CP.PCM.HP ---
Past Patient History - Past Medical History & Family History Past Medical History?: Yes - Past Social History Smoking Status: Never Smoked - CARDIAC Hx Cardiac Disorders: No - PULMONARY Hx Respiratory Disorders: No - NEUROLOGICAL Hx Neurological Disorder: No - HEENT Hx HEENT Problems: No - RENAL Hx Chronic Kidney Disease: Yes Hx Kidney Stones: Yes - ENDOCRINE/METABOLIC Hx Endocrine Disorders: No - HEMATOLOGICAL/ONCOLOGICAL Hx Blood Disorders: No - INTEGUMENTARY Hx Dermatological Problems: No - MUSCULOSKELETAL/RHEUMATOLOGICAL Hx Musculoskeletal Disorders: No Hx Falls: No - GASTROINTESTINAL Hx Gastrointestinal Disorders: No - GENITOURINARY/GYNECOLOGICAL Hx Genitourinary Disorders: Yes Hx Urinary Tract Infection: Yes - PSYCHIATRIC Hx Substance Use: No - SURGICAL HISTORY Hx Surgeries: Yes Hx Section: Yes (2 x 25-30 years ago) Other/Comment: Left Stent placement [address] Pack. HX: 01/15/17-LEFT URETERAL STENT PLACEMENT - ANESTHESIA Hx Anesthesia: Yes Hx Anesthesia Reactions: Yes (post op nausea) Hx Malignant Hyperthermia: No Has any member of the family had a problem w/ anesthesia?: No Meds Allergies/Adverse Reactions: Allergies Allergy/AdvReac Type Severity Reaction Status Date / Time Penicillins Allergy RASH Verified 03/05/17 17:04 Physical Exam - Constitutional Appears: Well - Head Exam Head Exam: ATRAUMATIC, NORMAL INSPECTION, NORMOCEPHALIC - Eye Exam Eye Exam: EOMI, Normal appearance, PERRL Pupil Exam: NORMAL ACCOMODATION, PERRL - ENT Exam ENT Exam: Mucous Membranes Moist, Normal Exam - Neck Exam Neck exam: Positive for: Normal Inspection - Respiratory Exam Respiratory Exam: Decreased Breath Sounds - Cardiovascular Exam Cardiovascular Exam: REGULAR RHYTHM, +S1, +S2 - GI/Abdominal Exam GI & Abdominal Exam: Diminished Bowel Sounds, Soft - Rectal Exam Rectal Exam: Deferred Results - Vital Signs Recent Vital Signs: Last Vital Signs Temp 97.4 F L 05/04/18 08:40 Pulse 65 05/04/18 08:40 Resp 18 05/04/18 08:40 BP 118/76 05/04/18 08:40 Pulse Ox 97 05/04/18 08:40 - Labs Result Diagrams: 05/04/18 05:15 05/04/18 05:15 Labs: Laboratory Results - last 24 hr 05/03/18 05/03/18 05/03/18 21:04 21:04 21:40 WBC 7.7 RBC 4.96 Hgb 13.6 Hct 41.0 MCV 82.7 MCH 27.5 MCHC 33.2 RDW 15.0 H Plt Count 251 MPV 7.0 L Neut % (Auto) 57.8 Lymph % (Auto) 31.4 [place] % (Auto) 6.4 Eos % (Auto) 3.6 Baso % (Auto) 0.8 Neut # (Auto) 4.5 Lymph # (Auto) 2.4 [place] # (Auto) 0.5 Eos # (Auto) 0.3 Baso # (Auto) 0.1 PT INR APTT Sodium 140 Potassium 4.3 Chloride 105 Carbon Dioxide 27 Anion Gap 12 BUN 12 Creatinine 0.7 Est GFR ( Amer) > 60 Est GFR (Non-Af Amer) > 60 Random Glucose 186 H Calcium 9.2 Phosphorus Magnesium Total Bilirubin 0.7 AST 80 H D ALT 60 H D Alkaline Phosphatase 101 Total Protein 7.2 Albumin 4.0 Globulin 3.3 Albumin/Globulin Ratio 1.2 Lipase 77 Urine Color Yellow Urine Clarity Clear Urine pH 6.0 Ur Specific [place] 1.021 Urine Protein Negative Urine Glucose (UA) Normal Urine Ketones Negative Urine Blood Negative Urine Nitrate Negative Urine Bilirubin Negative Urine Urobilinogen 2.0 H Ur Leukocyte Esterase Neg Urine WBC (Auto) < 1 Urine RBC (Auto) 1 Ur Squamous Epith Cells 12 H Urine Bacteria Occ H 05/04/18 05/04/18 05/04/18 05:15 05:15 08:01 WBC 7.5 RBC 4.50 Hgb 12.5 Hct 37.3 MCV 82.8 MCH 27.7 MCHC 33.5 RDW 15.1 H Plt Count 205 MPV 7.2 Neut % (Auto) 49.0 L Lymph % (Auto) 40.1 H [place] % (Auto) 5.6 Eos % (Auto) 4.2 H Baso % (Auto) 1.1 Neut # (Auto) 3.7 Lymph # (Auto) 3.0 [place] # (Auto) 0.4 Eos # (Auto) 0.3 Baso # (Auto) 0.1 PT 12.1 INR 1.1 APTT 28 Sodium 136 Potassium 3.4 L Chloride 106 Carbon Dioxide 24 Anion Gap 10 BUN 8 Creatinine 0.6 L Est GFR ( Amer) > 60 Est GFR (Non-Af Amer) > 60 Random Glucose 188 H Calcium 8.3 L Phosphorus 3.0 Magnesium 1.9 Total Bilirubin 0.8 AST 67 H ALT 57 H Alkaline Phosphatase 77 Total Protein 6.2 L Albumin 3.3 L Globulin 2.9 Albumin/Globulin Ratio 1.2 Lipase Urine Color Urine Clarity Urine pH Ur Specific [place] Urine Protein Urine Glucose (UA) Urine Ketones Urine Blood Urine Nitrate Urine Bilirubin Urine Urobilinogen Ur Leukocyte Esterase Urine WBC (Auto) Urine RBC (Auto) Ur Squamous Epith Cells Urine Bacteria Assessment & Plan - Assessment and Plan (Free Text) Plan: Potassium supplementation Status post surgery Seen by surgeons IV Cipro IV clindamycin Morphine IV Flagyl As ordered
[2018-05-04] MEDS ORDERED: Clindamycin 300 MG in Sodium Chloride 0.9% 50 ML IVPB SCH (18:00)
[2018-05-04] MEDS ORDERED: Lactated Ringer's 1,000 ML IV ONE (18:01)
[2018-05-04] MEDS ORDERED: HYDROmorphone 0.5 mg/0.5 ml ISec IVP PRN (18:03)
--- NOTE | 2018-05-04 18:03 | PCM.SURG1 ---
Surgeon's Initial Post Op Note - Surgeon's Notes Surgeon: Dr. Alarcon Recovery Analyst: Dr. Rodney Type of Anesthesia: General Endo Anesthesia Administered By: Dr. Palacios Pre-Operative Diagnosis: Acute Cholelithiasis Operative Findings: See operative dictation Post-Operative Diagnosis: Acute cholecystitis Operation Performed: Robotic Cholecystectomy and TAP block Specimen/Specimens Removed: Gallbladder Estimated Blood Loss: EBL {In ML}: 2 Blood Products Given: N/A Drains Used: No Drains Post-Op Condition: Good Date of Surgery/Procedure: 05/04/18 Time of Surgery/Procedure: 18:02
[2018-05-04] MEDS: HYDROmorphone 0.5 mg/0.5 ml ISec IVP PRN ×3 (18:10→18:46)
[2018-05-04] MEDS ORDERED: HYDROmorphone 0.5 mg/0.5 ml ISec ONE (18:12)
[2018-05-04] MEDS: Clindamycin 300 MG in Sodium Chloride 0.9% 50 ML IVPB SCH (21:45)
[2018-05-05 00:19] VITALS: RESP 20
--- NOTE | 2018-05-05 03:44 | OP ---
PROCEDURE DATE: 05/04/2018 PREOPERATIVE DIAGNOSES: 1. Acute cholecystitis and cholelithiasis. 2. Morbid obesity. 3. Abdominal pain and leukocytosis. POSTOPERATIVE DIAGNOSES: 1. Acute on chronic cholecystitis with cholelithiasis. 2. Extensive peritoneal adhesions. 3. Morbid obesity. PROCEDURES DONE: 1. Robotic cholecystectomy. 2. Robotic enterolysis and lysis of adhesions. 3. Laparoscopic bilateral transverse abdominis plane block placement. SURGEON: Dc Alarcon MD ASSISTANTS: CHELSEA Howard and Shyam Rodney DO, PGY-2 resident ANESTHESIA: General endotracheal tube anesthesia. ESTIMATED BLOOD LOSS: Around 10 mL. DRAIN: None. PATHOLOGY: Gallbladder with a gallstone was sent for the pathology. COMPLICATIONS: None. INTRAOPERATIVE FINDINGS: The patient had changes of acute on chronic cholecystitis with extensive duodenal as well as peritoneal adhesions in the right upper quadrant as well as in the Calot's triangle. DESCRIPTION OF PROCEDURE: On intraoperative steps, this 57-year-old female was diagnosed with acute cholecystitis with cholelithiasis. The patient was consented for the robotic cholecystectomy, possible open, brought to the OR, placed supine on the operating table. After induction of the anesthesia, the abdomen was prepped and draped in the usual sterile fashion. A supraumbilical transverse incision was made after incising the skin, subcutaneous tissue and the fascia. Robotic camera port was placed. Pneumo was created. Another 3 x 8-mm port was placed in the upper abdomen. Robot was brought in. Camera arm as well as arm 1 and arm 2 were docked. The patient had omental as well as intestinal adhesions in the right upper quadrant. First, lysis of adhesion was done. The duodenum was completely lysed, and it was firmly adhesed to the gallbladder. Then, the Calot's triangle dissection was done. Cystic duct and cystic artery were identified. The intraoperative Firefly was used. Top-down approach was done. Critical view of the safety was identified. The cystic duct and cystic artery were clipped at three places and cut in between two clips nearby gallbladder, and gallbladder was dissected free from the gallbladder fossa, taken in EndoCatch bag, taken out through the umbilical port site. There was a proper hemostasis in each and every part of the procedure. The laparoscopic bilateral TAP block was given. A 30:30 mL of Marcaine was injected into the transverse abdominis muscle plane block. After the TAP block, all the ports were taken out under vision. Pneumo was deflated. The robot was undocked before giving the TAP. After that, the umbilical port site was closed in two layers, the fascia with 0 Vicryl interrupted sutures and skin with a 4-0 Monocryl. Dry sterile dressing was applied. The patient was extubated in OR and sent to the postanesthesia care unit in stable condition. Dc Alarcon MD
[2018-05-05] MEDS: metroNIDAZOLE IV 500 mg/100 ml 500 MG/100 ML BAG IVPB SCH ×4 (04:11→20:53)
[2018-05-05] MEDS: Clindamycin 300 MG in Sodium Chloride 0.9% 50 ML IVPB SCH ×5 (04:12→22:13)
[2018-05-05] MEDS: Ciprofloxacin 400mg/200ml D5W 400 MG/200 ML BAG IVPB SCH ×2 (04:13→16:21)
[2018-05-05 07:54] LABS: BASO # 0.1 K/uL (0.0-0.2); BASO % 0.4 % (0.0-2.0); EOS % 0.1 % (0.0-4.0); LYMPH # 1.9 K/uL (1.0-4.3); LYMPH % 14.5 % (20.0-40.0); MEAN CELL VOLUME 83.2 fL (81.0-99.0); MEAN CORPUSCULAR HGB CONC 33.6 g/dL (33.0-37.0); MEAN PLATELET VOLUME 7.5 fL (7.2-11.7); MONO # 0.6 K/uL (0.0-0.8); MONO % 4.5 % (0.0-10.0); NEUT # 10.6 K/uL (1.8-7.0); NEUT % 80.5 % (50.0-75.0); RED CELL DISTRIBUTION WIDTH 14.9 % (11.5-14.5)
--- NOTE | 2018-05-05 07:54 | CP.PCM.PN ---
Subjective - Date & Time of Evaluation Date of Evaluation: 05/05/18 Time of Evaluation: 06:40 - Subjective Subjective: Surgery progress note for Dr. Alarcon Pt seen and examined this AM. Pt had nausea and vomiting after receiving IV pain medicine last night, but no further emesis. Objective - Vital Signs/Intake and Output Vital Signs (last 24 hours): Temp Pulse Resp BP Pulse Ox 97.6 F 69 20 111/72 96 05/05/18 00:00 05/05/18 00:00 05/05/18 00:00 05/05/18 00:00 05/05/18 00:00 Intake and Output: 05/05/18 05/05/18 06:59 18:59 Output Total 100 Balance -100 - Medications Medications: Current Medications Famotidine (Pepcid) 20 mg PO DAILY EDINSON Last Admin: 05/04/18 10:51 Dose: 20 mg Hydromorphone HCl (Dilaudid) 0.5 mg IVP Q10M PRN PRN Reason: Pain, moderate (4-7) Last Admin: 05/04/18 18:46 Dose: 0.5 mg Hydromorphone HCl (Dilaudid) 0.5 mg IVP Q4H PRN PRN Reason: Pain, severe (8-10) Last Admin: 05/04/18 21:38 Dose: 0.5 mg Ciprofloxacin (Cipro 400mg/200ml Dsw) 400 mg in 200 mls @ 133 mls/hr IVPB Q12H EDINSON; Protocol Last Admin: 05/05/18 04:13 Dose: 133 mls/hr Metronidazole (Flagyl) 500 mg in 100 mls @ 100 mls/hr IVPB Q8H EDINSON; Protocol Last Admin: 05/05/18 04:11 Dose: 100 mls/hr Lactated Ringer's (Lactated Ringer's) 1,000 mls @ 125 mls/hr IV .Q8H EDINSON Last Admin: 05/04/18 21:47 Dose: 125 mls/hr Clindamycin Phosphate 300 mg/ (Sodium Chloride) 52 mls @ 100 mls/hr IVPB Q6H EDINSON; Protocol Influenza Virus Vaccine (Fluzone Quad [id number]) 60 mcg IM .ONCE ONE Stop: 05/06/18 10:01 Morphine Sulfate (Morphine) 2 mg IVP Q4 PRN PRN Reason: Pain, severe (8-10) Ondansetron HCl (Zofran Inj) 4 mg IVP Q6 PRN PRN Reason: Nausea/Vomiting Last Admin: 05/05/18 04:14 Dose: 4 mg Oxycodone/Acetaminophen (Percocet 5/325 Mg Tab) 1 tab PO Q4H PRN PRN Reason: Pain, moderate (4-7) Stop: 05/07/18 04:51 Last Admin: 05/05/18 05:53 Dose: 1 tab - Labs Labs: 05/04/18 05:15 05/04/18 05:15 PT 12.1 SECONDS (9.7-12.2) 05/04/18 08:01 INR 1.1 05/04/18 08:01 APTT 28 SECONDS (21-34) 05/04/18 08:01 - Constitutional Appears: Well, Non-toxic, No Acute Distress - Head Exam Head Exam: ATRAUMATIC, NORMOCEPHALIC - Eye Exam Eye Exam: Normal appearance. absent: Conjunctival injection, Scleral icterus - ENT Exam ENT Exam: Mucous Membranes Moist, Normal Oropharynx - Respiratory Exam Respiratory Exam: NORMAL BREATHING PATTERN. absent: Accessory Muscle Use, Respiratory Distress - Cardiovascular Exam Cardiovascular Exam: RRR - GI/Abdominal Exam GI & Abdominal Exam: Soft, Tenderness (RUQ and tevin-incisional). absent: Distended Additional comments: dressings C/D/I - Extremities Exam Extremities Exam: absent: Calf Tenderness, Pedal Edema, Tenderness - Neurological Exam Neurological Exam: Alert, Awake, Oriented x3 - Psychiatric Exam Psychiatric exam: Normal Affect, Normal Mood - Skin Skin Exam: Dry, Normal Color, Warm Assessment and Plan - Assessment and Plan (Free Text) Assessment: 57F POD#1 s/p laparoscopic cholecystectomy Plan: Monitor for diet tolerance this AM. If patient tolerates her diet, ambulates, and pain is tolerated with PO pain medication patient may be discharged with follow up with Dr. Alarcon in his office PO PRN pain medicine, PRN nausea medicine Encourage ambulation, incentive spirometer use Trend CBC/CMP as inpatient Discussed with Dr. Alarcon who agrees with above
[2018-05-05 08:02] LABS: WHITE BLOOD COUNT 13.2 K/uL (4.8-10.8)
[2018-05-05 08:35] LABS: ALB/GLOB RATIO 1.2 (1.0-2.1); ALT/SGPT 67 U/L (9-52); AST/SGOT 100 U/L (14-36); BLOOD UREA NITROGEN 7 mg/dL (7-17); CALCIUM 9.3 mg/dl (8.6-10.4); GFR NON-AFRICAN AMERICAN > 60
[2018-05-05] MEDS: Lactated Ringer's 1,000 ML IV SCH ×2 (10:31→14:09)
--- NOTE | 2018-05-05 16:11 | CP.PCM.PN ---
Subjective - Date & Time of Evaluation Date of Evaluation: 05/05/18 Time of Evaluation: 10:00 - Subjective Subjective: clinically same Objective - Vital Signs/Intake and Output Vital Signs (last 24 hours): Temp Pulse Resp BP Pulse Ox 98.3 F 72 20 127/71 96 05/05/18 16:00 05/05/18 16:00 05/05/18 16:00 05/05/18 16:00 05/05/18 16:00 Intake and Output: 05/05/18 05/05/18 06:59 18:59 Intake Total 1200 Output Total 100 Balance -100 1200 - Medications Medications: Current Medications Acetaminophen (Tylenol 325mg Tab) 650 mg PO Q6 PRN PRN Reason: Pain, Mild (1-3) Famotidine (Pepcid) 20 mg PO DAILY [facility]IN[facility] Last Admin: 05/05/18 10:30 Dose: Not Given Ciprofloxacin (Cipro 400mg/200ml Dsw) 400 mg in 200 mls @ 133 mls/hr IVPB Q12H [facility]; Protocol Last Admin: 05/05/18 04:13 Dose: 133 mls/hr Metronidazole (Flagyl) 500 mg in 100 mls @ 100 mls/hr IVPB Q8H [facility]; Protocol Last Admin: 05/05/18 12:28 Dose: 100 mls/hr Lactated Ringer's (Lactated Ringer's) 1,000 mls @ 125 mls/hr IV .Q8H [facility] Last Admin: 05/05/18 14:09 Dose: Not Given Clindamycin Phosphate 300 mg/ (Sodium Chloride) 52 mls @ 100 mls/hr IVPB Q6H [facility]; Protocol Last Admin: 05/05/18 10:45 Dose: 100 mls/hr Influenza Virus Vaccine (Fluzone Quad [id number]) 60 mcg IM .ONCE ONE Stop: 05/06/18 10:01 Ketorolac Tromethamine (Toradol) 30 mg IVP Q8 PRN PRN Reason: Pain, severe (8-10) Last Admin: 05/05/18 14:35 Dose: 30 mg Ondansetron HCl (Zofran Inj) 4 mg IVP Q6 PRN PRN Reason: Nausea/Vomiting Last Admin: 05/05/18 14:35 Dose: 4 mg - Labs Labs: 05/05/18 07:34 05/05/18 07:34 PT 12.1 SECONDS (9.7-12.2) 05/04/18 08:01 INR 1.1 05/04/18 08:01 APTT 28 SECONDS (21-34) 05/04/18 08:01 - Constitutional Appears: Well - Head Exam Head Exam: ATRAUMATIC, NORMAL INSPECTION, NORMOCEPHALIC - Eye Exam Eye Exam: EOMI, Normal appearance, PERRL Pupil Exam: NORMAL ACCOMODATION, PERRL - ENT Exam ENT Exam: Mucous Membranes Moist, Normal Exam - Neck Exam Neck Exam: Full ROM, Normal Inspection. absent: Lymphadenopathy - Respiratory Exam Respiratory Exam: Decreased Breath Sounds - Cardiovascular Exam Cardiovascular Exam: REGULAR RHYTHM, +S1, +S2 - GI/Abdominal Exam GI & Abdominal Exam: Soft, Diminished Bowel Sounds - Rectal Exam Rectal Exam: Deferred Assessment and Plan - Assessment and Plan (Free Text) Plan: Status post surgery Continue Cipro Continue Clinda Resume the diet IV ketorolac every 8 Will DC morphine as patient persistent to have a nausea Zofran every 6 as needed Discussed with the hospital As ordered
[2018-05-06] MEDS: Ciprofloxacin 400mg/200ml D5W 400 MG/200 ML BAG IVPB SCH ×2 (04:01→16:27)
[2018-05-06] MEDS: metroNIDAZOLE IV 500 mg/100 ml 500 MG/100 ML BAG IVPB SCH (04:01)
[2018-05-06] MEDS: Clindamycin 300 MG in Sodium Chloride 0.9% 50 ML IVPB SCH ×3 (04:01→16:28)
[2018-05-06 07:49] LABS: BASO # 0.1 K/uL (0.0-0.2); BASO % 0.8 % (0.0-2.0); EOS # 0.1 K/uL (0.0-0.7); EOS % 0.9 % (0.0-4.0); HEMOGLOBIN 12.5 g/dL (11.0-16.0); LYMPH # 2.2 K/uL (1.0-4.3); LYMPH % 32.9 % (20.0-40.0); MEAN CELL VOLUME 82.2 fL (81.0-99.0); MEAN CORPUSCULAR HEMOGLOBIN 28.2 pg (27.0-31.0); MEAN CORPUSCULAR HGB CONC 34.3 g/dL (33.0-37.0); MEAN PLATELET VOLUME 7.4 fL (7.2-11.7); MONO # 0.5 K/uL (0.0-0.8); MONO % 8.1 % (0.0-10.0); NEUT # 3.9 K/uL (1.8-7.0); NEUT % 57.3 % (50.0-75.0); RBC 4.43 Mil/uL (3.80-5.20); RED CELL DISTRIBUTION WIDTH 14.8 % (11.5-14.5); WHITE BLOOD COUNT 6.7 K/uL (4.8-10.8)
[2018-05-06 07:58] VITALS: O2SAT 97
[2018-05-06 07:58] LABS: ALB/GLOB RATIO 1.1 (1.0-2.1); ALBUMIN 3.3 g/dL (3.5-5.0); ALT/SGPT 64 U/L (9-52); AST/SGOT 74 U/L (14-36); BLOOD UREA NITROGEN 11 mg/dL (7-17); GFR NON-AFRICAN AMERICAN > 60
[2018-05-06] MEDS ORDERED: Influenza Vaccine 60 MCG/0.5 ML SYR (3 yr & up) IM ONE (10:00)
[2018-05-06] MEDS ORDERED: Potassium Chloride 20 mEq ER Tab PO ONE (14:15)
--- NOTE | 2018-05-06 14:57 | CP.PCM.PN ---
Subjective - Date & Time of Evaluation Date of Evaluation: 05/06/18 Time of Evaluation: 09:45 - Subjective Subjective: clinically same Objective - Vital Signs/Intake and Output Vital Signs (last 24 hours): Temp Pulse Resp BP Pulse Ox 98.0 F 68 20 115/76 97 05/06/18 07:10 05/06/18 07:10 05/06/18 07:10 05/06/18 07:10 05/06/18 07:10 Intake and Output: 05/06/18 05/06/18 06:59 18:59 Intake Total 250 Balance 250 - Medications Medications: Current Medications Acetaminophen (Tylenol 325mg Tab) 650 mg PO Q6 PRN PRN Reason: Pain, Mild (1-3) Heparin Sodium (Porcine) (Heparin) 5,000 units SC Q8 EDIN[facility] Last Admin: 05/06/18 14:48 Dose: 5,000 units Ciprofloxacin (Cipro 400mg/200ml Dsw) 400 mg in 200 mls @ 133 mls/hr IVPB Q12H [facility]; Protocol Last Admin: 05/06/18 04:01 Dose: Not Given Clindamycin Phosphate 300 mg/ (Sodium Chloride) 52 mls @ 100 mls/hr IVPB Q6H [facility]; Protocol Last Admin: 05/06/18 10:00 Dose: Not Given Ketorolac Tromethamine (Toradol) 30 mg IVP Q8 [facility] Last Admin: 05/06/18 14:28 Dose: Not Given Metoclopramide HCl (Reglan) 10 mg IVP Q8 PRN PRN Reason: Nausea/Vomiting Last Admin: 05/05/18 20:47 Dose: 10 mg Ondansetron HCl (Zofran Inj) 4 mg IVP Q6 [facility] Last Admin: 05/06/18 12:26 Dose: Not Given Pantoprazole Sodium (Protonix Inj) 40 mg IVP DAILY [facility] Last Admin: 05/06/18 09:33 Dose: 40 mg Potassium Chloride (Potassium Chloride Oral Soln) 40 meq PO ONCE ONE Stop: 05/06/18 16:01 - Labs Labs: 05/06/18 07:23 05/06/18 07:23 PT 12.1 SECONDS (9.7-12.2) 05/04/18 08:01 INR 1.1 05/04/18 08:01 APTT 28 SECONDS (21-34) 05/04/18 08:01 - Constitutional Appears: Well - Head Exam Head Exam: ATRAUMATIC, NORMAL INSPECTION, NORMOCEPHALIC - Eye Exam Eye Exam: EOMI, Normal appearance, PERRL Pupil Exam: NORMAL ACCOMODATION, PERRL - ENT Exam ENT Exam: Mucous Membranes Moist, Normal Exam - Neck Exam Neck Exam: Full ROM, Normal Inspection. absent: Lymphadenopathy - Respiratory Exam Respiratory Exam: Decreased Breath Sounds - Cardiovascular Exam Cardiovascular Exam: REGULAR RHYTHM, +S1, +S2 - GI/Abdominal Exam GI & Abdominal Exam: Soft, Diminished Bowel Sounds - Rectal Exam Rectal Exam: Deferred
--- NOTE | 2018-05-06 15:28 | CP.PCM.PN ---
Subjective - Date & Time of Evaluation Date of Evaluation: 05/06/18 Time of Evaluation: 15:28 Objective - Vital Signs/Intake and Output Vital Signs (last 24 hours): Temp Pulse Resp BP Pulse Ox 98.0 F 68 20 115/76 97 05/06/18 07:10 05/06/18 07:10 05/06/18 07:10 05/06/18 07:10 05/06/18 07:10 Intake and Output: 05/06/18 05/06/18 06:59 18:59 Intake Total 250 Balance 250 - Medications Medications: Current Medications Acetaminophen (Tylenol 325mg Tab) 650 mg PO Q6 PRN PRN Reason: Pain, Mild (1-3) Heparin Sodium (Porcine) (Heparin) 5,000 units SC Q8 [facility] Last Admin: 05/06/18 14:48 Dose: 5,000 units Ciprofloxacin (Cipro 400mg/200ml Dsw) 400 mg in 200 mls @ 133 mls/hr IVPB Q12H [facility]; Protocol Last Admin: 05/06/18 04:01 Dose: Not Given Clindamycin Phosphate 300 mg/ (Sodium Chloride) 52 mls @ 100 mls/hr IVPB Q6H [facility]; Protocol Last Admin: 05/06/18 10:00 Dose: Not Given Ketorolac Tromethamine (Toradol) 30 mg IVP Q8 [facility] Last Admin: 05/06/18 14:28 Dose: Not Given Metoclopramide HCl (Reglan) 10 mg IVP Q8 PRN PRN Reason: Nausea/Vomiting Last Admin: 05/05/18 20:47 Dose: 10 mg Ondansetron HCl (Zofran Inj) 4 mg IVP Q6 [facility] Last Admin: 05/06/18 12:26 Dose: Not Given Pantoprazole Sodium (Protonix Inj) 40 mg IVP DAILY [facility] Last Admin: 05/06/18 09:33 Dose: 40 mg Potassium Chloride (Potassium Chloride Oral Soln) 40 meq PO ONCE ONE Stop: 05/06/18 16:01 - Labs Labs: 05/06/18 07:23 05/06/18 07:23 PT 12.1 SECONDS (9.7-12.2) 05/04/18 08:01 INR 1.1 05/04/18 08:01 APTT 28 SECONDS (21-34) 05/04/18 08:01 Assessment and Plan - Assessment and Plan (Free Text) Assessment: FOLLOW UP WITH DR Esha MONTAGUE IN HIS OFFICE ----CALL FOR APPOINTMENT FOLLOW UP WITH DR FISCHER IN HIS OFFICE ----CALL FOR APPOINTMENT CONTINUE HOME MEDICATION NEW PRESCRIPTION GIVEN PROTONIX 40 MG PO DAILY TRAMADOL 50 MG PO Q8H FOR 5 DAYS ZOFRAN 4 PO Q8 H FOR 3 DAYS ACTIVITY TOLERATED DO NOT REMOVE DRESSING FOR [address] FISCHER CALL DR Esha MONTAGUE OR GO TO THE EMERGENCY ROOM IF SYMPTOM RETURN OR WORSENING
[2018-05-06] MEDS ORDERED: Potassium Chloride 20 mEq/15 ml LIQ UD PO ONE (16:00)
[2018-05-06 16:23] VITALS: BP 115/77; PULSE 94; TEMP 98
--- NOTE | 2018-05-06 18:53 | CP.PCM.PN ---
Subjective - Date & Time of Evaluation Date of Evaluation: 05/06/18 Time of Evaluation: 18:29 - Subjective Subjective: General Surgery Progress Note for Dr. Alarcon This 57F was seen and examined this AM overnight when she received her ABX infusion she became dizzy. Otherwise she denies pain and has no complaints at this time. Objective - Vital Signs/Intake and Output Vital Signs (last 24 hours): Temp Pulse Resp BP Pulse Ox 98 F 94 H 20 115/77 97 05/06/18 16:00 05/06/18 16:00 05/06/18 16:00 05/06/18 16:00 05/06/18 16:00 Intake and Output: 05/06/18 05/06/18 06:59 18:59 Intake Total 250 Balance 250 - Labs Labs: 05/06/18 07:23 05/06/18 07:23 PT 12.1 SECONDS (9.7-12.2) 05/04/18 08:01 INR 1.1 05/04/18 08:01 APTT 28 SECONDS (21-34) 05/04/18 08:01 - Constitutional Appears: Non-toxic, No Acute Distress - Head Exam Head Exam: ATRAUMATIC, NORMOCEPHALIC - Eye Exam Eye Exam: EOMI - ENT Exam ENT Exam: Mucous Membranes Moist - Respiratory Exam Respiratory Exam: NORMAL BREATHING PATTERN - Cardiovascular Exam Cardiovascular Exam: +S1, +S2 - GI/Abdominal Exam GI & Abdominal Exam: Soft. absent: Distended, Firm, Guarding, Rigid, Tenderness - Neurological Exam Neurological Exam: Alert, Awake - Psychiatric Exam Psychiatric exam: Normal Affect, Normal Mood - Skin Skin Exam: Dry, Intact Assessment and Plan - Assessment and Plan (Free Text) Assessment: 57F POD#2 s/p robotic antolin and doing well Plan: Regular diet Clear for d/c Further recs per Dr. Agnes Rodney PGY3
--- NOTE | 2018-05-06 21:02 | CARD ---
APPROVED REPORT Date of service: 05/04/2018 EKG Measurement Heart [id number] <Conclusion> Normal sinus rhythm Normal Electrocardiogram
== END 2018-05-06 17:29 | disposition home or self-care (01) | DRG 263 ==
LOC: C.ER 20:03 → C.9E 05-04 03:11 → C.5S 05-04 07:08
PROVIDERS: ADMIT Internal Medicine Nephrology; ATTEND Internal Medicine Nephrology
PROC: 8E0W4CZ Robotic Assisted Procedure of Trunk Region, Percutaneous Endoscopic Approach (ICD-10-PCS; 2018-05-04)
PROC: 0DNW4ZZ Release Peritoneum, Percutaneous Endoscopic Approach (ICD-10-PCS; 2018-05-04)
PROC: 3E0T3BZ Introduction of Anesthetic Agent into Peripheral Nerves and Plexi, Percutaneous Approach (ICD-10-PCS; 2018-05-04)
PROC: 0FT44ZZ Resection of Gallbladder, Percutaneous Endoscopic Approach (ICD-10-PCS; principal; 2018-05-04 15:30)
DX: K80.12 Calculus of gallbladder with acute and chronic cholecystitis without obstruction (principal); E66.01 Morbid (severe) obesity due to excess calories; K66.0 Peritoneal adhesions (postprocedural) (postinfection); N18.9 Chronic kidney disease, unspecified; K59.09 Other constipation; Z87.440 Personal history of urinary (tract) infections; Z87.442 Personal history of urinary calculi; Z79.899 Other long term (current) drug therapy

== ENCOUNTER 2018-09-22 07:53 | Outpatient (CLI) | payer OTHER | END 2018-09-22 07:54 | disposition home or self-care (01) | LOC: C.USIC 07:53 | DX: N20.9 Urinary calculus, unspecified (principal) ==